=== PATIENT | male | born 1945 | race Caucasian/White ===

== ENCOUNTER → 2017-12-09 | Outpatient (CLI) | payer MEDICARE ==
[2017-12-09 14:58] LABS: Appearance,Urine Clear (Clear); Bilirubin,Urine Negative (Negative); Blood,Urine Negative (Negative); Color,Urine Yellow; Glucose,Urine (UA) Negative (Negative); Ketones,Urine Negative (Negative); Leukocyte Esterase,Urine Negative (Negative); Mucus,Urine Rare /hpf; Nitrite,Urine Negative (Negative); PH, Urine 5.5 (5.0-8.0); Protein,Urine 2+ (Negative); RBC,Urine <1 /hpf (0-5); Specific Gravity,Urine 1.014 (1.001-1.035); Squamous Epithelial Cell,Urine <1 /hpf (0-4); Urobilinogen,Urine <2.0 mg/dL (<2.0); WBC,Urine 1 /hpf (0-5)
[2017-12-09 15:00] LABS: Albumin 4.2 g/dL (3.5-5.0); Anion Gap 13 mmol/L; Blood Urea Nitrogen 25 mg/dL (9-20); Calcium 9.5 mg/dL (8.4-10.2); Carbon Dioxide 25 mmol/L (22-30); Chloride 106 mmol/L (98-107); Glucose 103 mg/dL (74-99); Potassium 4.2 mmol/L (3.5-5.1); Sodium 144 mmol/L (137-145); Uric Acid 8.6 mg/dL (3.5-8.5)
[2017-12-09 15:26] LABS: HCT 35.8 % (39.0-53.0); HGB 12.3 gm/dL (13.0-17.5); MCH 29.9 pg (25.0-35.0); MCHC 34.3 g/dL (31.0-37.0); MCV 87.2 fL (80.0-100.0); Mean Platelet Volume 9.4; Platelet Count 276 k/uL (150-450); RDW 15.1 % (11.5-15.5); WBC 10.1 k/uL (3.8-10.6)
[2017-12-09 16:17] LABS: Eosinophils # (M) 0.61 k/uL (0-0.7); Lymphocytes # (M) 0.91 k/uL (1.0-4.8); Neutrophils # (M) 8.18 k/uL (1.3-7.7); Neutrophils % (M) 81 %; Nucleated Red Blood Cells 0 /100 WBC (0-0); Total Cells Counted 100
[2017-12-09 16:18] LABS: Large Platelets Present
[2017-12-09 19:06] LABS: Iron Saturation 30.03 (15.00-50.00); Protein, Total 6.5 g/dL (6.2-8.2)
[2017-12-09 19:14] LABS: Vitamin D 25 Hydroxy 20.1 ng/mL (30.0-100.0)
[2017-12-09 19:23] LABS: Parathyroid Hormone Intact 38.1 pg/mL (14.0-72.0)
[2017-12-10 00:37] LABS: Anti-DNA, DS unit <1.0 IU/mL; DNA Double-Stranded NEGATIVE (NEGATIVE)
[2017-12-10 14:07] LABS: C-ANCA <1:20 Titer (<1:20); P-ANCA <1:20 Titer (<1:20)
== END | disposition home or self-care (01) ==
LOC: LABWHC1 13:44
PROVIDERS: ATTEND Internal Medicine Nephrology
DX: R80.9 Proteinuria, unspecified (principal); E55.9 Vitamin D deficiency, unspecified; D64.9 Anemia, unspecified; E21.3 Hyperparathyroidism, unspecified; M10.9 Gout, unspecified
CPT/HCPCS: 36415; 80048; 81001; 82040; 82306; 82728; 83516; 83540; 83550; 83735; 83970; 84100; 84165; 84550; 85025; 86038; 86160; 86162; 86225; 86255; 86335

== ENCOUNTER → 2017-12-16 | Outpatient (CLI) | payer MEDICARE ==
--- NOTE | 2017-12-17 06:52 | US ---
EXAMINATION TYPE: US kidneys/renal and bladder DATE OF EXAM: 12/16/2017 COMPARISON: NONE CLINICAL HISTORY: R80.9 Proteinuria. EXAM MEASUREMENTS: Right Kidney: 12.2 x 7.0 x 5.9 cm Left Kidney: 11.9 x 6.5 x 6.5 cm Post Void Residual Volume: 15.8 mL Right Kidney: No hydronephrosis or masses seen Left Kidney: complex hypoechoic lesion mid lower pole with inner calcification: = 1.9 x 1.7 x 1.6cm and inner calcification with shadowing = 0.3 x 0.7 x 0.4cm. Bladder: wnl Bilateral Jets seen: Yes, right jet mor prominent than left. Normal Post Void Residual: No IMPRESSION: 1. There is a complex hypoechoic lesion within the left kidney contains internal calcification. This was not clearly seen on the previous CT scan of 2012. Recommend follow-up CT scan.
== END ==
LOC: RADUSWWP 14:45
PROVIDERS: ATTEND Internal Medicine Nephrology
DX: N28.89 Other specified disorders of kidney and ureter (principal)
CPT/HCPCS: 76770

== ENCOUNTER 2019-06-01 15:12 | Observation (INO) | payer MEDICARE ==
--- NOTE | 2019-06-01 15:56 | XR ---
EXAMINATION TYPE: XR chest 2V DATE OF EXAM: 06/01/2019 COMPARISON: Prior chest x-ray 05/13/2013 HISTORY: Mental status TECHNIQUE: Frontal and lateral views of the chest are obtained. FINDINGS: There is no focal air space opacity, pleural effusion, or pneumothorax seen. The cardiac silhouette size is within normal limits, stable. The osseous structures are intact. Surgical clips present in the upper abdomen. There are overlying cardiac leads. The aorta is dense. IMPRESSION: No acute cardiopulmonary process.
--- NOTE | 2019-06-01 16:02 | ED ---
General Adult HPI - General Chief complaint: Neuro Symptoms/Deficit Stated complaint: Pain over left eye Time Seen by Provider: 06/01/19 15:15 Source: patient, RN notes reviewed, old records reviewed Mode of arrival: wheelchair Limitations: no limitations - History of Present Illness Initial comments: This is a 73-year-old male who presents emergency Department with a past history significant for seizures. Patient states he may have had a mini stroke in the past per patient states today he started having pain over his left I and he then had slurred speech for about 30 seconds and felt confused for that same 30 second period of time and then the symptoms resolved. At this point time the headache over the left I continued and he decided to come to the emergency department to be evaluated. Patient states he has had no visual disturbance and it's not his eye that hurts it's superior to the eye where he is having a headache. Patient denies any numbness or weakness at this time. Patient states his speech does not appear slurred over this time and he does not feel confused like he did earlier today. Patient denies any chest pain palpitations difficulty breathing. Patient denies any abdominal pain patient denies any nausea vomiting diarrhea. Patient denies any lightheadedness or dizziness. - Related Data Home Medications Medication Instructions Recorded Confirmed Allopurinol [Zyloprim] 100 mg PO BID 06/01/19 06/01/19 Anagrelide [Agrylin] 1.5 mg PO BID 06/01/19 06/01/19 Simvastatin [Zocor] 20 mg PO DAILY 06/01/19 06/01/19 Previous Rx's Medication Instructions Recorded Lisinopril [Zestril] 10 mg PO DAILY #0 06/02/19 levETIRAcetam [Keppra] 500 mg PO Q12HR #60 tab 06/02/19 Allergies Allergy/AdvReac Type Severity Reaction Status Date / Time No Known Allergies Allergy Verified 06/01/19 16:31 Review of Systems ROS Statement: Those systems with pertinent positive or pertinent negative responses have been documented in the HPI. ROS Other: All systems not noted in ROS Statement are negative. Past Medical History Past Medical History: CVA/TIA, Hyperlipidemia, Hypertension, Seizure Disorder History of Any Multi-Drug Resistant Organisms: None Reported Past Surgical History: No Surgical Hx Reported Past Psychological History: No Psychological Hx Reported Smoking Status: Never smoker Past Alcohol Use History: None Reported Past Drug Use History: None Reported General Exam - General Exam Comments Initial Comments: GENERAL: Patient is well-developed and well-nourished. Patient is nontoxic and well- hydrated and is in no acute distress. ENT: Neck is soft and supple. No significant lymphadenopathy is noted. Oropharynx is clear. Moist mucous membranes. Neck has full range of motion without eliciting any pain. EYES: The sclera were anicteric and conjunctiva were pink and moist. Extraocular movements were intact and pupils were equal round and reactive to light. Eyelids were unremarkable. PULMONARY: Unlabored respirations. Good breath sounds bilaterally. No audible rales rhonchi or wheezing was noted. CARDIOVASCULAR: There is a regular rate and rhythm without any murmurs gallops or rubs. ABDOMEN: Soft and nontender with normal bowel sounds. No palpable organomegaly was noted. There is no palpable pulsatile mass. SKIN: Skin is clear with no lesions or rashes and otherwise unremarkable. NEUROLOGIC: Patient is alert and oriented x3. Cranial nerves II through XII are grossly intact. Motor and sensory are also intact. Normal speech, volume and content. Symmetrical smile. NIH is 0. MUSCULOSKELETAL: Normal extremities with adequate strength and full range of motion. No lower extremity swelling or edema. No calf tenderness. LYMPHATICS: No significant lymphadenopathy is noted PSYCHIATRIC: Normal psychiatric evaluation. Limitations: no limitations Course Vital Signs 06/01/19 06/01/19 06/01/19 15:15 16:53 17:28 Temperature 97.7 F Pulse Rate 81 80 85 Respiratory 20 16 18 Rate Blood Pressure 168/85 161/83 170/79 O2 Sat by Pulse 98 97 98 Oximetry 06/01/19 18:48 Temperature Pulse Rate 67 Respiratory 16 Rate Blood Pressure 170/86 O2 Sat by Pulse 97 Oximetry Medical Decision Making - Medical Decision Making EKG shows normal sinus rhythm at 84 bpm DC interval 170 QRS is 74 QT interval 360 QTC is 425 per patient's EKG shows no ST segment elevation or depression or T wave abnormalities are noted. I spoke with [facility] hospilists and they accepted the patient - Lab Data Result diagrams: 06/01/19 14:27 06/01/19 14:27 Lab Results 06/01/19 06/01/19 06/01/19 Range/Units 14:27 14:27 14:27 WBC 9.4 (3.8-10.6) k/uL RBC 3.94 L (4.30-5.90) m/uL Hgb 11.8 L (13.0-17.5) gm/dL Hct 35.8 L (39.0-53.0) % MCV 90.9 (80.0-100.0) fL MCH 29.9 (25.0-35.0) pg MCHC 32.9 (31.0-37.0) g/dL RDW 14.8 (11.5-15.5) % Plt Count 204 (150-450) k/uL Neutrophils % 71 % Lymphocytes % 18 % Monocytes % 5 % Eosinophils % 3 % Basophils % 1 % Neutrophils # 6.7 (1.3-7.7) k/uL Lymphocytes # 1.7 (1.0-4.8) k/uL Monocytes # 0.5 (0-1.0) k/uL Eosinophils # 0.3 (0-0.7) k/uL Basophils # 0.1 (0-0.2) k/uL Manual Slide Review Performed Hypochromasia (manual) Present Poikilocytosis (manual Present Anisocytosis (manual) Present PT 10.6 (9.0-12.0) sec INR 1.0 (<1.2) APTT 25.4 (22.0-30.0) sec Sodium 144 (137-145) mmol/L Potassium 4.4 (3.5-5.1) mmol/L Chloride 109 H (98-107) mmol/L Carbon Dioxide 27 (22-30) mmol/L Anion Gap 8 mmol/L BUN 38 H (9-20) mg/dL Creatinine 1.52 H (0.66-1.25) mg/dL Est GFR (CKD-EPI)AfAm 52 (>60 ml/min/1.73 sqM) Est GFR (CKD-EPI)NonAf 45 (>60 ml/min/1.73 sqM) Glucose 104 H (74-99) mg/dL Calcium 9.4 (8.4-10.2) mg/dL Total Bilirubin 0.8 (0.2-1.3) mg/dL AST 24 (17-59) U/L ALT 26 (21-72) U/L Alkaline Phosphatase 90 (38-126) U/L Troponin I (0.000-0.034) ng/mL Total Protein 7.1 (6.3-8.2) g/dL Albumin 4.2 (3.5-5.0) g/dL 06/01/19 Range/Units 14:27 WBC (3.8-10.6) k/uL RBC (4.30-5.90) m/uL Hgb (13.0-17.5) gm/dL Hct (39.0-53.0) % MCV (80.0-100.0) fL MCH (25.0-35.0) pg MCHC (31.0-37.0) g/dL RDW (11.5-15.5) % Plt Count (150-450) k/uL Neutrophils % % Lymphocytes % % Monocytes % % Eosinophils % % Basophils % % Neutrophils # (1.3-7.7) k/uL Lymphocytes # (1.0-4.8) k/uL Monocytes # (0-1.0) k/uL Eosinophils # (0-0.7) k/uL Basophils # (0-0.2) k/uL Manual Slide Review Hypochromasia (manual) Poikilocytosis (manual Anisocytosis (manual) PT (9.0-12.0) sec INR (<1.2) APTT (22.0-30.0) sec Sodium (137-145) mmol/L Potassium (3.5-5.1) mmol/L Chloride (98-107) mmol/L Carbon Dioxide (22-30) mmol/L Anion Gap mmol/L BUN (9-20) mg/dL Creatinine (0.66-1.25) mg/dL Est GFR (CKD-EPI)AfAm (>60 ml/min/1.73 sqM) Est GFR (CKD-EPI)NonAf (>60 ml/min/1.73 sqM) Glucose (74-99) mg/dL Calcium (8.4-10.2) mg/dL Total Bilirubin (0.2-1.3) mg/dL AST (17-59) U/L ALT (21-72) U/L Alkaline Phosphatase (38-126) U/L Troponin I <0.012 (0.000-0.034) ng/mL Total Protein (6.3-8.2) g/dL Albumin (3.5-5.0) g/dL Disposition Clinical Impression: Transient cerebral ischemia Disposition: ADMITTED IP TO THIS HOSP Condition: Stable
[2019-06-01 16:42] LABS: Albumin 4.2 g/dL (3.5-5.0); Calcium 9.4 mg/dL (8.4-10.2); Potassium 4.4 mmol/L (3.5-5.1); Total Bilirubin 0.8 mg/dL (0.2-1.3); Total Protein 7.1 g/dL (6.3-8.2)
[2019-06-01 16:43] LABS: Partial Thromboplastin Time 25.4 sec (22.0-30.0); Prothrombin Time 10.6 sec (9.0-12.0)
[2019-06-01 16:54] LABS: Basophils # (A) 0.1 k/uL (0-0.2); Basophils % (A) 1 %; Eosinophils # (A) 0.3 k/uL (0-0.7); Eosinophils % (A) 3 %; HCT 35.8 % (39.0-53.0); HGB 11.8 gm/dL (13.0-17.5); Lymphocytes # (A) 1.7 k/uL (1.0-4.8); Lymphocytes % (A) 18 %; MCH 29.9 pg (25.0-35.0); MCHC 32.9 g/dL (31.0-37.0); MCV 90.9 fL (80.0-100.0); Mean Platelet Volume 10.2; Monocytes # (A) 0.5 k/uL (0-1.0); Monocytes % (A) 5 %; Neutrophils # (A) 6.7 k/uL (1.3-7.7); Neutrophils % (A) 71 %; Platelet Count 204 k/uL (150-450); RBC 3.94 m/uL (4.30-5.90); RDW 14.8 % (11.5-15.5); WBC 9.4 k/uL (3.8-10.6)
--- NOTE | 2019-06-01 17:04 | CT ---
EXAMINATION TYPE: CT brain wo con DATE OF EXAM: 06/01/2019 COMPARISON: 03/11/2009 HISTORY: pain over left eye/slurred speeech CT DLP: 1084.4 mGycm Automated exposure control for dose reduction was used. FINDINGS: There is 1.5 cm mucous retention cyst right side of the sphenoid sinus. There is mild diffuse cerebra l atrophy. There is no mass effect nor midline shift. There is no sign of intracranial hemorrhage. Ca lvarium is intact. IMPRESSION: MILD CEREBRAL ATROPHY. NO ACUTE INTRACRANIAL ABNORMALITY. THERE IS PROGRESSION OF ATROPHY COMPARED TO OLD EXAM.
[2019-06-01] MEDS ORDERED: ASPIRIN 325 MG TAB PO STA (17:10)
[2019-06-01 17:33] LABS: Anisocytosis (M) Present; Hypochromasia (M) Present; Poikilocytosis (M) Present
[2019-06-01] MEDS: levETIRAcetam 500 MG TAB PO SCH (21:05)
[2019-06-01] MEDS: ALLOPURINOL 100 MG TAB PO SCH (21:05)
[2019-06-01] MEDS: ANAGRELIDE 0.5 MG CAP PO SCH (21:06)
[2019-06-02 06:28] LABS: Cholesterol 99 mg/dL (<200); HDL Cholesterol 27 mg/dL (40-60); LDL Cholesterol,Calculated 54 mg/dL (0-99); Triglycerides 92 mg/dL (<150)
[2019-06-02] MEDS: levETIRAcetam 500 MG TAB PO SCH (08:07)
[2019-06-02] MEDS: ALLOPURINOL 100 MG TAB PO SCH (08:07)
[2019-06-02 08:17] VITALS: RESP 20; TEMP 97.6
[2019-06-02] MEDS: ANAGRELIDE 0.5 MG CAP PO SCH (08:31)
[2019-06-02] MEDS ORDERED: ATORVASTATIN 10 MG TAB PO SCH (09:00)
[2019-06-02] MEDS ORDERED: LISINOPRIL 5 MG TAB PO SCH (09:00)
[2019-06-02] MEDS ORDERED: HYDROCHLOROTHIAZIDE 25 MG TAB PO SCH (09:00)
[2019-06-02] MEDS ORDERED: SODIUM CHLORIDE 0.9% 1,000 ML IV ONE (11:45)
[2019-06-02] MEDS ORDERED: SODIUM CHLORIDE 0.9% 1,000 ML IV SCH (11:45)
[2019-06-02] MEDS ORDERED: ASPIRIN 325 MG TAB PO SCH (12:00)
[2019-06-02 12:56] VITALS: BP 165/77; PULSE 82
--- NOTE | 2019-06-02 13:46 | P.HPIM ---
History of Present Illness Patient is a 73-year-old male came in the emergency department with the complaints of headache followed by slurred speech which lasted for 30 seconds was bit confused. 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 Patient any fever chills patient had nausea vomiting. Denied any visual disturbance. CAT scan of the head showed mild cerebral atrophy. Patient's LDL is below 70. Patient doesn't take aspirin or Plavix at home but does take medication called Agrylin which is an antiplatelet medication because of his side effects to the other antiplatelets. 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 Follows with dermatology for this. I'll obtain a carotid Doppler. Patient baseline creatinine around 0.6 and then it went up to 1.5 patient's on MOON inhibitor and hydrochlorothiazide. Both of these can cause renal dysfunction. Although patient is not willing to stay in the hospital metabolic patient wanted to go home because of that reason I'll give him a bolus of fluid repeat basic metabolic profile in couple days discontinue hydrochlorothiazide since her blood pressure is still high we will increase MOON inhibitor. I'll not start any additional antiplatelet therapy because of his side effects and patient just wanted to follow up with his neurologist will set up an appointment in next 2-3 days patient is not willing to stay for any further workup any further neurological evaluation here in the hospital. Patient did receive his Keppra here. Patient will be discharged with [facility]. Review of Systems REVIEW OF SYSTEMS: CONSTITUTIONAL: No fever, no malaise, no fatigue. HEENT: No recent visual problems or hearing problems. Denied any sore throat. CARDIOVASCULAR: No chest pain, orthopnea, PND, no palpitations, no syncope. PULMONARY: No shortness of breath, no cough, no hemoptysis. GASTROINTESTINAL: No diarrhea, no nausea, no vomiting, no abdominal pain. NEUROLOGICAL: As mentioned in HPI HEMATOLOGICAL: Denies any bleeding or petechiae. GENITOURINARY: Denies any burning micturition, frequency, or urgency. MUSCULOSKELETAL/RHEUMATOLOGICAL: Denies any joint pain, swelling, or any muscle pain. ENDOCRINE: Denies any polyuria or polydipsia. The rest of the 14-point review of systems is negative. Past Medical History Past Medical History: CVA/TIA, Hyperlipidemia, Hypertension, Seizure Disorder History of Any Multi-Drug Resistant Organisms: None Reported Past Surgical History: Prostate Surgery Past Anesthesia/Blood Transfusion Reactions: No Reported Reaction Past Psychological History: No Psychological Hx Reported Smoking Status: Never smoker Past Alcohol Use History: None Reported Past Drug Use History: None Reported Medications and Allergies Home Medications Medication Instructions Recorded Confirmed Type Allopurinol [Zyloprim] 100 mg PO BID 06/01/19 06/01/19 History Anagrelide [Agrylin] 1.5 mg PO BID 06/01/19 06/01/19 History Simvastatin [Zocor] 20 mg PO DAILY 06/01/19 06/01/19 History Lisinopril [Zestril] 10 mg PO DAILY #0 06/02/19 06/01/19 Rx levETIRAcetam [Keppra] 500 mg PO BID #60 tab 06/02/19 Rx Allergies Allergy/AdvReac Type Severity Reaction Status Date / Time No Known Allergies Allergy Verified 06/01/19 16:31 Physical Exam Vitals: Vital Signs Temp Pulse Pulse Resp BP BP Pulse Ox 06/02/19 12:00 82 20 165/77 96 06/02/19 08:00 97.6 F 72 20 153/76 98 06/01/19 22:51 72 18 151/73 98 06/01/19 19:30 98.1 F 76 18 155/71 98 06/01/19 18:48 67 16 170/86 97 06/01/19 17:28 85 18 170/79 98 06/01/19 16:53 80 16 161/83 97 06/01/19 15:15 97.7 F 81 20 168/85 98 Intake and Output 06/01/19 06/02/19 06/02/19 22:59 06:59 14:59 Intake Total 480 Balance 480 Intake: Oral 480 Other: # Voids 1 Weight 77.111 kg 73.9 kg PHYSICAL EXAMINATION: GENERAL: The patient is alert and oriented x3, not in any acute distress. Well developed, well nourished. HEENT: Pupils are round and equally reacting to light. EOMI. No scleral icterus. No conjunctival pallor. Normocephalic, atraumatic. No pharyngeal erythema. No thyromegaly. CARDIOVASCULAR: S1 and S2 present. No murmurs, rubs, or gallops. PULMONARY: Chest is clear to auscultation, no wheezing or crackles. ABDOMEN: Soft, nontender, nondistended, normoactive bowel sounds. No palpable organomegaly. MUSCULOSKELETAL: No joint swelling or deformity. EXTREMITIES: No cyanosis, clubbing, or pedal edema. NEUROLOGICAL: Gross neurological examination did not reveal any focal deficits. SKIN: No rashes. Results CBC & Chem 7: 06/01/19 14:27 06/01/19 14:27 Labs: Abnormal Lab Results - Last 24 Hours (Table) 06/01/19 06/01/19 06/02/19 Range/Units 14:27 14: 06:00 RBC 3.94 L (4.30-5.90) m/uL Hgb 11.8 L (13.0-17.5) gm/dL Hct 35.8 L (39.0-53.0) % Chloride 109 H (98-107) mmol/L BUN 38 H (9-20) mg/dL Creatinine 1.52 H (0.66-1.25) mg/dL Glucose 104 H (74-99) mg/dL HDL Cholesterol 27 L (40-60) mg/dL Thrombosis Risk Factor Assmnt - Choose All That Apply Each Risk Factor Represents 2 Points: Age 61-74 years Thrombosis Risk Factor Assessment Total Risk Factor Score: 2 Thrombosis Risk Factor Assessment Level: Low Risk Assessment and Plan Plan: -Possible transient ischemic attack with symptoms resolved plan as mentioned was patient is not willing to stay Will opt and carotid Doppler and will discharge to follow up with the his neurologist as an outpatient. -Acute and failure probably secondary to MOON inhibitor and hydrochlorothiazide give him IV fluids" is a will be discontinued as his blood pressure still high , a dose of MOON inhibitor and repeat basic metabolic profile in couple days. -Hyperlipidemia -Seizure disorder: Plan as mentioned above
--- NOTE | 2019-06-02 13:46 | P.DS ---
Providers Date of admission: 06/01/19 17:12 Attending physician: Pema Loomis Primary care physician: Xenia Charles [facility] Course: Please refer to my H&P for further details Plan - Discharge Summary Discharge Rx Participant: No New Discharge Prescriptions: Continue Simvastatin [Zocor] 20 mg PO DAILY Anagrelide [Agrylin] 1.5 mg PO BID Allopurinol [Zyloprim] 100 mg PO BID levETIRAcetam [Keppra] 500 mg PO BID #60 tab Changed Lisinopril [Zestril] 10 mg PO DAILY #0 Discontinued Hydrochlorothiazide 25 mg PO DAILY Discharge Medication List Allopurinol [Zyloprim] 100 mg PO BID 06/01/19 [History] Anagrelide [Agrylin] 1.5 mg PO BID 06/01/19 [History] Simvastatin [Zocor] 20 mg PO DAILY 06/01/19 [History] Lisinopril [Zestril] 10 mg PO DAILY #0 06/02/19 [Rx] levETIRAcetam [Keppra] 500 mg PO BID #60 tab 06/02/19 [Rx] Follow up Appointment(s)/Referral(s): Vazquez Ramirez DO [STAFF PHYSICIAN] - 06/29/19 (Saturday message left on your voicemail with time (computers are currently down so they can't look it up)) Xenia Charles MD [Primary Care Provider] - 06/09/19 11:15 am (Saturday) Ambulatory/Diagnostic Orders: Basic Metabolic Panel [LAB.AMB] Time Frame: 3 Days, Location: None Selected Patient Instructions/Handouts: Transient Ischemic Attack (DC) Discharge Disposition: HOME SELF-CARE
--- NOTE | 2019-06-02 15:22 | US ---
EXAMINATION TYPE: US carotid duplex BILAT DATE OF EXAM: 06/02/2019 COMPARISON: NONE CLINICAL HISTORY: TIA. TIA EXAM MEASUREMENTS: RIGHT: Peak Systolic Velocity (PSV) cm/sec ----- Right CCA: 59.5 ----- Right ICA: 131.8 ----- Right ECA: 104.8 ICA/CCA ratio: 2.2 RIGHT: End Diastole cm/sec ----- Right CCA: 11.5 ----- Right ICA: 17.5 ----- Right ECA: 0 LEFT: Peak Systolic Velocity (PSV) cm/sec ----- Left CCA: 76.2 ----- Left ICA: 56.8 ----- Left ECA: 59.4 ICA/CCA ratio: 0.7 LEFT: End Diastole cm/sec ----- Left CCA: 12.8 ----- Left ICA: 16.7 ----- Left ECA: 0 VERTEBRALS (direction of flow): Right Vertebral: Antegrade Left Vertebral: Antegrade Rhythm: Normal Grayscale, color Doppler, spectral Doppler imaging performed. No significant stenosis seen Waveform analysis shows mild elevation of the ICA to CCA ratio, peak systolic velocity in the interna l carotid artery on the right. IMPRESSION: No hemodynamic significant stenosis of the proximal internal carotid artery on the left by Doppler criteria, an indirect measurement of carotid stenosis. There are atheromatous changes invo lving the proximal internal carotid artery on the right at the level of the carotid bulb only mild ve locity increase, no elevation of the end-diastolic velocity. ICA to CCA ratio is mildly increased. Fo llow-up is recommended. Carotid CTA could be performed for increased sensitivity and specificity.
== END 2019-06-02 17:07 | disposition home or self-care (01) ==
LOC: EC 15:12 → 3SCARD 17:12
PROVIDERS: ADMIT Hospitalist; ATTEND Hospitalist
DX: R51 Headache (principal); R47.81 Slurred speech; R41.0 Disorientation, unspecified; E78.5 Hyperlipidemia, unspecified; G40.909 Epilepsy, unspecified, not intractable, without status epilepticus; I10 Essential (primary) hypertension; Z86.73 Personal history of transient ischemic attack (TIA), and cerebral infarction without residual deficits; Z79.02 Long term (current) use of antithrombotics/antiplatelets; Z79.899 Other long term (current) drug therapy; Z98.890 Other specified postprocedural states
CPT/HCPCS: 99285; 36415; 93005; 97161; 80061; 80053; 84484; 85025; 85610; 85730; 71046; 93880; 70450; G0378 ×2

== ENCOUNTER 2019-06-17 06:18 | Emergency (ER) | payer MEDICARE ==
[2019-06-17] MEDS ORDERED: OXYMETAZOLINE 0.05% NASL SPRAY 1 SPRAY BOTTLE NASAL STA (06:21)
[2019-06-17 06:34] VITALS: TEMP 97.9
--- NOTE | 2019-06-17 06:51 | ED ---
ENT HPI - General Stated complaint: Nose Bleed Time Seen by Provider: 06/17/19 06:20 Source: patient, EMS, RN notes reviewed Mode of arrival: EMS Limitations: no limitations - History of Present Illness Initial comments: 73-year-old male presents emergency Department chief complaint of nosebleed. Patient states this started a few hours ago. Bleeding has subsided at this time. He does admit that he has a history of hypertension has not taken his blood pressure medications morning. He states he took an aspirin 2 days ago but denies taking any blood thinners. Patient states she's had this happen in the past in which he had his nose packed and it really is old. Patient denies any headache, dizziness, chest pain or shortness of breath. - Related Data Home Medications Medication Instructions Recorded Confirmed Allopurinol [Zyloprim] 100 mg PO BID 06/01/19 06/01/19 Anagrelide [Agrylin] 1.5 mg PO BID 06/01/19 06/01/19 Simvastatin [Zocor] 20 mg PO DAILY 06/01/19 06/01/19 Previous Rx's Medication Instructions Recorded Lisinopril [Zestril] 10 mg PO DAILY #0 06/02/19 levETIRAcetam [Keppra] 500 mg PO Q12HR #60 tab 06/02/19 Allergies Allergy/AdvReac Type Severity Reaction Status Date / Time No Known Allergies Allergy Verified 06/01/19 16:31 Review of Systems ROS Statement: Those systems with pertinent positive or pertinent negative responses have been documented in the HPI. ROS Other: All systems not noted in ROS Statement are negative. Past Medical History Past Medical History: CVA/TIA, Hyperlipidemia, Hypertension, Seizure Disorder History of Any Multi-Drug Resistant Organisms: None Reported Past Surgical History: No Surgical Hx Reported Past Anesthesia/Blood Transfusion Reactions: No Reported Reaction Past Psychological History: No Psychological Hx Reported Smoking Status: Never smoker Past Alcohol Use History: None Reported Past Drug Use History: None Reported General Exam Limitations: no limitations General appearance: alert, in no apparent distress Head exam: Present: atraumatic, normocephalic, normal inspection Eye exam: Present: normal appearance, PERRL, EOMI. Absent: scleral icterus, conjunctival injection, periorbital swelling ENT exam: Present: mucous membranes moist, TM's normal bilaterally, other (Large blood clot noted in the left nostril no active bleeding.). Absent: normal exam, normal oropharynx (Old blood noted in the oropharynx) Neck exam: Present: normal inspection, full ROM. Absent: tenderness, meningismus, lymphadenopathy Respiratory exam: Present: normal lung sounds bilaterally. Absent: respiratory distress, wheezes, rales, rhonchi, stridor Cardiovascular Exam: Present: regular rate, normal rhythm, normal heart sounds. Absent: systolic murmur, diastolic murmur, rubs, gallop, clicks Course Vital Signs 06/17/19 06:21 Temperature 97.9 F Pulse Rate 85 Respiratory 18 Rate Blood Pressure 161/93 O2 Sat by Pulse 100 Oximetry Medical Decision Making - Medical Decision Making Patient presented with epistaxis. Patient clot in his left nostril was removed by me, after nasal spray was sprayed, clamp was reapplied. Clamp was removed and bleeding has subsided for greater than 30 minutes. Patient will be discharged in stable condition return parameters discussed. Disposition Clinical Impression: Epistaxis Disposition: HOME SELF-CARE Condition: Stable Instructions (If sedation given, give patient instructions): Nosebleed (ED) Additional Instructions: Please return to the Emergency Department if symptoms worsen or any other concerns. Is patient prescribed a controlled substance at d/c from ED?: No Referrals: Xenia Charles MD [Primary Care Provider] - 1-2 days Time of Disposition: 07:50
[2019-06-17 08:16] VITALS: BP 161/85; PULSE 67; RESP 16
== END 2019-06-17 08:30 | disposition home or self-care (01) ==
LOC: EC 06:18
DX: R04.0 Epistaxis (principal); I10 Essential (primary) hypertension; E78.5 Hyperlipidemia, unspecified; Z79.899 Other long term (current) drug therapy; Z86.73 Personal history of transient ischemic attack (TIA), and cerebral infarction without residual deficits
CPT/HCPCS: 99283

== ENCOUNTER → 2019-06-29 | Outpatient (CLI) | payer MEDICARE ==
[2019-06-29 13:22] LABS: Partial Thromboplastin Time 26.7 sec (22.0-30.0); Prothrombin Time 11.1 sec (9.0-12.0)
[2019-06-29 13:25] LABS: Basophils # (A) 0.1 k/uL (0-0.2); Basophils % (A) 1 %; Eosinophils # (A) 0.3 k/uL (0-0.7); Eosinophils % (A) 3 %; HCT 32.4 % (39.0-53.0); HGB 10.5 gm/dL (13.0-17.5); Hypochromasia Slight; Lymphocytes # (A) 1.3 k/uL (1.0-4.8); Lymphocytes % (A) 14 %; MCH 29.2 pg (25.0-35.0); MCHC 32.4 g/dL (31.0-37.0); MCV 90.4 fL (80.0-100.0); Mean Platelet Volume 10.7; Monocytes # (A) 0.4 k/uL (0-1.0); Monocytes % (A) 5 %; Neutrophils # (A) 7.2 k/uL (1.3-7.7); Neutrophils % (A) 77 %; Platelet Count 340 k/uL (150-450); RBC 3.59 m/uL (4.30-5.90); RDW 15.1 % (11.5-15.5); WBC 9.4 k/uL (3.8-10.6)
== END | disposition home or self-care (01) ==
LOC: LABWHC1 12:28
PROVIDERS: ATTEND Psychiatry & Neurology Neurology
DX: D68.9 Coagulation defect, unspecified (principal); G40.909 Epilepsy, unspecified, not intractable, without status epilepticus; Z79.899 Other long term (current) drug therapy
CPT/HCPCS: 36415; 85025; 85610; 85730

== ENCOUNTER 2019-09-02 16:05 | Emergency (ER) | payer MEDICARE ==
[2019-09-02 16:26] LABS: Glucose,Whole Blood 116 mg/dL (75-99)
[2019-09-02] MEDS ORDERED: SODIUM CHLORIDE 0.9% 1,000 ML IV STA ×2 (17:01)
[2019-09-02] MEDS ORDERED: SODIUM CHLORIDE 0.9% 500 ML 500 ML IV STA (17:01)
--- NOTE | 2019-09-02 17:01 | ED ---
Neuro HPI - General Chief Complaint: Neuro Symptoms/Deficit Stated Complaint: Stroke symptoms Time Seen by Provider: 09/02/19 16:29 Source: patient, RN notes reviewed, old records reviewed Mode of arrival: wheelchair Limitations: no limitations - History of Present Illness Is the patient presenting with stroke symptoms?: No Last Known Well Date: 09/02/19 Last Known Well Time: 15:00 -: hour(s) Initial Comments: This is a 73-year-old male who presents today for evaluation of some slurred speech and confusion symptoms about 2-1/2 hours prior to arrival in the ER. Symptoms resolved for about 45 minutes he does have history of TIA. Patient is otherwise no traumas no injuries mild headache earlier but that is resolved. No recent travel history or sick contacts or recent medication changes no recent fevers no nausea vomiting or diarrhea or illness. Patient states symptoms occurred while driving and again resolved before minutes after that began Location: speech History of same: Yes Place: home Severity: mild Quality: weak Improves With: time Worsens With: none On Anticoagulants: No Context: sudden onset, other (Symptoms resolved) Associated Symptoms: confusion Treatments Prior to Arrival: none - Related Data Home Medications: Home Medications Medication Instructions Recorded Confirmed Allopurinol [Zyloprim] 100 mg PO BID 06/01/19 06/01/19 Anagrelide [Agrylin] 1.5 mg PO BID 06/01/19 06/01/19 Simvastatin [Zocor] 20 mg PO DAILY 06/01/19 06/01/19 Previous Rx's Medication Instructions Recorded Lisinopril [Zestril] 10 mg PO DAILY #0 06/02/19 levETIRAcetam [Keppra] 500 mg PO Q12HR #60 tab 06/02/19 Aspirin 325 mg PO DAILY #30 tab 09/02/19 Allergies/Adverse Reactions: Allergies Allergy/AdvReac Type Severity Reaction Status Date / Time No Known Allergies Allergy Verified 09/02/19 18:44 Review of Systems ROS Statement: Those systems with pertinent positive or pertinent negative responses have been documented in the HPI. ROS Other: All systems not noted in ROS Statement are negative. General Exam - General Exam Comments Initial Comments: NIH is 0 Limitations: no limitations General appearance: alert, in no apparent distress Head exam: Present: atraumatic, normocephalic, normal inspection Eye exam: Present: normal appearance, PERRL, EOMI. Absent: scleral icterus, conjunctival injection, periorbital swelling ENT exam: Present: normal exam, mucous membranes moist Neck exam: Present: normal inspection. Absent: tenderness, meningismus, lymphadenopathy Respiratory exam: Present: normal lung sounds bilaterally. Absent: respiratory distress, wheezes, rales, rhonchi, stridor Cardiovascular Exam: Present: regular rate, normal rhythm, normal heart sounds. Absent: systolic murmur, diastolic murmur, rubs, gallop, clicks GI/Abdominal exam: Present: soft, normal bowel sounds. Absent: distended, tenderness, guarding, rebound, rigid Extremities exam: Present: normal inspection, full ROM, normal capillary refill. Absent: tenderness, pedal edema, joint swelling, calf tenderness Back exam: Present: normal inspection Neurological exam: Present: alert, oriented X3, CN II-XII intact Psychiatric exam: Present: normal affect, normal mood Skin exam: Present: warm, dry, intact, normal color. Absent: rash Stroke MDM - Lab Data Result diagrams: 09/02/19 16:21 09/02/19 16:21 Lab Results 09/02/19 09/02/19 09/02/19 Range/Units 16:15 16:21 16:21 WBC 10.1 (3.8-10.6) k/uL RBC 4.54 (4.30-5.90) m/uL Hgb 12.9 L (13.0-17.5) gm/dL Hct 40.0 (39.0-53.0) % MCV 88.2 (80.0-100.0) fL MCH 28.4 (25.0-35.0) pg MCHC 32.1 (31.0-37.0) g/dL RDW 15.3 (11.5-15.5) % Plt Count 273 (150-450) k/uL Neutrophils % (Manual) 79 % Band Neutrophils % 2 % Lymphocytes % (Manual) 11 % Monocytes % (Manual) 6 % Eosinophils % (Manual) 2 % Neutrophils # (Manual) 8.10 H (1.3-7.7) k/uL Lymphocytes # (Manual) 1.11 (1.0-4.8) k/uL Monocytes # (Manual) 0.61 (0-1.0) k/uL Eosinophils # (Manual) 0.20 (0-0.7) k/uL Nucleated RBCs 0 (0-0) /100 WBC Manual Slide Review Performed Large Platelets Present PT (9.0-12.0) sec INR (<1.2) APTT (22.0-30.0) sec Sodium 140 (137-145) mmol/L Potassium 4.7 (3.5-5.1) mmol/L Chloride 107 (98-107) mmol/L Carbon Dioxide 25 (22-30) mmol/L Anion Gap 8 mmol/L BUN 29 H (9-20) mg/dL Creatinine 1.32 H (0.66-1.25) mg/dL Est GFR (CKD-EPI)AfAm 62 (>60 ml/min/1.73 sqM) Est GFR (CKD-EPI)NonAf 53 (>60 ml/min/1.73 sqM) Glucose 111 H (74-99) mg/dL POC Glucose (mg/dL) 116 H (75-99) mg/dL POC Glu Slip Cover Operator ID Salgat, Nica Calcium 9.6 (8.4-10.2) mg/dL Total Bilirubin 0.9 (0.2-1.3) mg/dL AST 27 (17-59) U/L ALT 15 (4-49) U/L Alkaline Phosphatase 86 (38-126) U/L Troponin I (0.000-0.034) ng/mL Total Protein 7.3 (6.3-8.2) g/dL Albumin 4.5 (3.5-5.0) g/dL 09/02/19 09/02/19 Range/Units 16:21 16:21 WBC (3.8-10.6) k/uL RBC (4.30-5.90) m/uL Hgb (13.0-17.5) gm/dL Hct (39.0-53.0) % MCV (80.0-100.0) fL MCH (25.0-35.0) pg MCHC (31.0-37.0) g/dL RDW (11.5-15.5) % Plt Count (150-450) k/uL Neutrophils % (Manual) % Band Neutrophils % % Lymphocytes % (Manual) % Monocytes % (Manual) % Eosinophils % (Manual) % Neutrophils # (Manual) (1.3-7.7) k/uL Lymphocytes # (Manual) (1.0-4.8) k/uL Monocytes # (Manual) (0-1.0) k/uL Eosinophils # (Manual) (0-0.7) k/uL Nucleated RBCs (0-0) /100 WBC Manual Slide Review Large Platelets PT 10.8 (9.0-12.0) sec INR 1.0 (<1.2) APTT 25.6 (22.0-30.0) sec Sodium (137-145) mmol/L Potassium (3.5-5.1) mmol/L Chloride (98-107) mmol/L Carbon Dioxide (22-30) mmol/L Anion Gap mmol/L BUN (9-20) mg/dL Creatinine (0.66-1.25) mg/dL Est GFR (CKD-EPI)AfAm (>60 ml/min/1.73 sqM) Est GFR (CKD-EPI)NonAf (>60 ml/min/1.73 sqM) Glucose (74-99) mg/dL POC Glucose (mg/dL) (75-99) mg/dL POC Glu Slip Cover Operator ID Calcium (8.4-10.2) mg/dL Total Bilirubin (0.2-1.3) mg/dL AST (17-59) U/L ALT (4-49) U/L Alkaline Phosphatase (38-126) U/L Troponin I <0.012 (0.000-0.034) ng/mL Total Protein (6.3-8.2) g/dL Albumin (3.5-5.0) g/dL - NIH Stroke Scale 1a. Level of Consciousness: (0) alert 1b. LOC Questions: (0) answers correctly 1c. LOC Commands: (0) performs tasks correctly 2. Best Gaze: (0) normal 3. Visual: (0) no visual loss 4. Facial Palsy: (0) normal symmetrical movement 5a. Motor Arm Left: (0) no drift 5b. Motor Arm Right: (0) no drift 6a. Motor Leg Left: (0) no drift 6b. Motor Leg Right: (0) no drift 7. Limb Ataxia: (0) absent 8. Sensory: (0) normal 9. Best Language: (0) no aphasia 10. Dysarthria: (0) normal 11. Extinction/Inattention: (0) no abnormality - Thrombolytic Inclusion/Exclusion Thrombolytic Inclusion Criteria: Symptom Onset < 4.5 h Thrombolytic Contraindications: Rapidly Improving s/s - Medical Decision Making 73 male DF for evaluation patient presents for evaluation of neurological symptoms, symptoms resolved upon arrival. He did have some slurred speech confusion again no symptoms really resolved, patient will start taking aspirin daily and follow-up with his neurologist going forward. - Radiology Data Radiology results: report reviewed (CT brain CT had neck negative for acute disease), image reviewed - EKG Data -: EKG Interpreted by Me (EKG shows sinus rhythm of 81, MO 180, QRS 82, QTC 446) Past Medical History Past Medical History: CVA/TIA, Hyperlipidemia, Hypertension, Seizure Disorder History of Any Multi-Drug Resistant Organisms: None Reported Past Surgical History: No Surgical Hx Reported Past Anesthesia/Blood Transfusion Reactions: No Reported Reaction Past Psychological History: No Psychological Hx Reported Smoking Status: Never smoker Past Alcohol Use History: None Reported Past Drug Use History: None Reported Course Vital Signs 09/02/19 09/02/19 16:06 16:15 Temperature 97.5 F L 97.2 F L Pulse Rate 98 86 Respiratory 20 18 Rate Blood Pressure 165/80 149/76 O2 Sat by Pulse 98 100 Oximetry - Reevaluation(s) Reevaluation #1: 09/02/19 18:49 Medical records reviewed Reevaluation #2: 09/02/19 18:49 Patient remains a symptomatic with no neurological complaints Reevaluation #3: 09/02/19 18:49 The patient at length will take daily aspirin and patient will be discharged home patient does not want to stay for further testing he plans on going out of town this weekend Disposition Clinical Impression: Transient cerebral ischemia Disposition: HOME SELF-CARE Condition: Good Instructions (If sedation given, give patient instructions): Transient Ischemic Attack (ED) Prescriptions: Aspirin 325 mg PO DAILY #30 tab Is patient prescribed a controlled substance at d/c from ED?: No Referrals: Xenia Charles MD [Primary Care Provider] - 1-2 days
[2019-09-02 17:22] LABS: Albumin 4.5 g/dL (3.5-5.0); Calcium 9.6 mg/dL (8.4-10.2); Potassium 4.7 mmol/L (3.5-5.1); Total Bilirubin 0.9 mg/dL (0.2-1.3); Total Protein 7.3 g/dL (6.3-8.2)
[2019-09-02 17:29] LABS: HGB 12.9 gm/dL (13.0-17.5); MCH 28.4 pg (25.0-35.0); MCHC 32.1 g/dL (31.0-37.0); MCV 88.2 fL (80.0-100.0); Mean Platelet Volume 11.9; RBC 4.54 m/uL (4.30-5.90); RDW 15.3 % (11.5-15.5); WBC 10.1 k/uL (3.8-10.6)
[2019-09-02 17:35] LABS: Partial Thromboplastin Time 25.6 sec (22.0-30.0); Prothrombin Time 10.8 sec (9.0-12.0)
--- NOTE | 2019-09-02 17:56 | CT ---
EXAMINATION TYPE: CT brain wo con for TPA DATE OF EXAM: 09/02/2019 COMPARISON: 06/01/2019 HISTORY: headache, dysphasia CT DLP: 1073 mGycm Automated exposure control for dose reduction was used. There is cerebral cortical atrophy. There is no mass effect nor midline shift. There is no sign of in tracranial hemorrhage. The calvarium is intact. There is mild hypodensity in the periventricular whit e matter. IMPRESSION: Cerebral atrophy and mild chronic small vessel ischemia. No acute intracranial abnormality. Right lore e sphenoid sinus mucus retention cyst unchanged compared to old exam.
--- NOTE | 2019-09-02 18:19 | CT ---
EXAMINATION TYPE: CT angio head neck DATE OF EXAM: 09/02/2019 COMPARISON: None HISTORY: headache, dysphasia CT DLP: 406.3 mGycm Automated exposure control for dose reduction was used. CONTRAST: Performed with IV Contrast, patient injected with 65 mL of Isovue 370. There are 3-D post processed images. There is normal branching pattern of the great vessels on the aortic arch. There is bilateral arteria l flow in the subclavian arteries. There is arterial flow in the common internal and external carotid arteries bilaterally. There is arterial flow in both vertebral arteries. There is no evidence of car otid or vertebral artery aneurysm or dissection. There is some plaque formation at the carotid artery bifurcations and luminal narrowing of approximately 20%. There is no evidence of hemodynamic stenosi s. There is arterial flow in the vertebrobasilar artery system. There is patent right posterior communic ating artery. Right posterior cerebral artery fills significantly from the right posterior communicat ing artery. There is arterial flow in the anterior middle and posterior cerebral arteries. There is n o mass effect. There is no evidence of intracranial aneurysm or neovascularity. I see no evidence of intracranial hemodynamic stenosis. There is normal contrast opacification of the venous sinuses. There is diminutive distal right verteb ral artery. IMPRESSION: Mild atherosclerotic vascular disease. No evidence of hemodynamic stenosis.
[2019-09-02] MEDS ORDERED: ASPIRIN 81 MG PO STA (18:24)
[2019-09-02 18:34] LABS: Band Neutrophils % 2 %; Large Platelets Present; Lymphocytes # (M) 1.11 k/uL (1.0-4.8); Monocytes # (M) 0.61 k/uL (0-1.0); Neutrophils % (M) 79 %; Nucleated Red Blood Cells 0 /100 WBC (0-0); Total Cells Counted 100
[2019-09-02 18:35] LABS: Platelet Count 273 k/uL (150-450)
[2019-09-02 19:03] VITALS: BP 162/86; PULSE 89; RESP 16; TEMP 98
== END 2019-09-02 19:07 | disposition home or self-care (01) ==
LOC: EC 16:05
DX: G45.9 Transient cerebral ischemic attack, unspecified (principal); E78.5 Hyperlipidemia, unspecified; I10 Essential (primary) hypertension; Z79.899 Other long term (current) drug therapy; Z53.8 Procedure and treatment not carried out for other reasons
CPT/HCPCS: 36415; 93005; 80053; 84484; 85025; 85610; 85730; 70496; 70450; 70498; 99285; 96360; 96361; Q9967

== ENCOUNTER 2021-04-13 11:59 | Inpatient (IN) | payer MEDICARE ==
--- NOTE | 2021-04-13 12:15 | ED ---
Weakness HPI - General Stated complaint: Fall-Leg Injury Time Seen by Provider: 04/13/21 12:00 Source: RN notes reviewed - History of Present Illness Initial comments: This is a 75-year-old male with a prior history of TIA and prostate cancer with prostate resection about 10 years ago who states he has had 4 days of right lower extremity weakness he states he can weight bear but he can't really move his right leg otherwise. He was in taking a shower today when he fell initially could not get up he did crawl across the floor and called 911 he was brought here for further evaluation he denies any overt head neck or back pain is complains some lower right flank pain no pain to his lower extremities but again no movement of the right lower extremity states it feels like a marionette on a strain Complaint: focal weakness - Related Data Home Medications Medication Instructions Recorded Confirmed Allopurinol [Zyloprim] 100 mg PO BID 06/01/19 09/02/19 Anagrelide [Agrylin] 1.5 mg PO BID 06/01/19 09/02/19 Simvastatin [Zocor] 20 mg PO HS 06/01/19 09/02/19 Ergocalciferol [Vitamin D2] See Taper PO DIRECTED 09/02/19 09/02/19 amLODIPine [Norvasc] 5 mg PO DAILY 09/02/19 09/02/19 levETIRAcetam [Keppra] 500 mg PO BID 09/02/19 09/02/19 lisinopriL [Zestril] 5 mg PO DAILY 09/02/19 09/02/19 Previous Rx's Medication Instructions Recorded Aspirin 325 mg PO DAILY #30 tab 09/02/19 Allergies Allergy/AdvReac Type Severity Reaction Status Date / Time No Known Allergies Allergy Verified 04/13/21 12:12 Review of Systems ROS Statement: Those systems with pertinent positive or pertinent negative responses have been documented in the HPI. ROS Other: All systems not noted in ROS Statement are negative. Past Medical History Past Medical History: CVA/TIA, Hyperlipidemia, Hypertension, Seizure Disorder History of Any Multi-Drug Resistant Organisms: None Reported Past Surgical History: No Surgical Hx Reported Past Anesthesia/Blood Transfusion Reactions: No Reported Reaction Past Psychological History: No Psychological Hx Reported Past Alcohol Use History: None Reported Past Drug Use History: None Reported General Exam - General Exam Comments Initial Comments: This is a well-developed well-nourished awake alert oriented times female with a Aubrey Coma Scale of 15 General appearance: alert, in no apparent distress Head exam: Present: atraumatic, normocephalic, normal inspection Eye exam: Present: normal appearance, PERRL, EOMI. Absent: scleral icterus, conjunctival injection, periorbital swelling ENT exam: Present: normal exam, mucous membranes moist Neck exam: Present: normal inspection. Absent: tenderness, meningismus, lymphadenopathy Respiratory exam: Present: normal lung sounds bilaterally. Absent: respiratory distress, wheezes, rales, rhonchi, stridor Cardiovascular Exam: Present: regular rate, normal rhythm, normal heart sounds. Absent: systolic murmur, diastolic murmur, rubs, gallop, clicks GI/Abdominal exam: Present: soft, normal bowel sounds. Absent: distended, tenderness, guarding, rebound, rigid Extremities exam: Present: normal inspection, normal capillary refill. Absent: full ROM, tenderness, pedal edema, joint swelling, calf tenderness Back exam: Present: normal inspection Neurological exam: Present: alert, oriented X3, CN II-XII intact, motor sensory deficit (Patient is unable to move the right lower extremity no overt tenderness palpation no vascular deficits) Psychiatric exam: Present: normal affect, normal mood Skin exam: Present: warm, dry, intact, normal color. Absent: rash Course Vital Signs 04/13/21 04/13/21 12:09 14:34 Temperature 97.9 F Pulse Rate 101 H 89 Respiratory 18 18 Rate Blood Pressure 135/68 151/79 O2 Sat by Pulse 96 96 Oximetry EKG Findings - EKG Results: EKG: interpreted by RASHAAD, sinus rhythm (Sinus rhythm a 99. We'll 170 QRS duration 82 QT since QTC 350/[address]-t wave changes) Medical Decision Making - Medical Decision Making I did discuss findings with the patient as well as with [facility] after [facility] service patient will be admitted with neurological consultation additionally patient does have evidence of dehydration and pneumonitis patient be admitted with antibiotics IV fluids and neurology consultation additionally patient does have demonstration of CVA symptoms he is not a candidate for interventional neurology this time - Lab Data Result diagrams: 04/13/21 12:58 04/13/21 12:58 Lab Results 04/13/21 04/13/21 04/13/21 Range/Units 12:58 12:58 12:58 WBC 25.9 H (3.8-10.6) k/uL RBC 4.65 (4.30-5.90) m/uL Hgb 13.8 (13.0-17.5) gm/dL Hct 41.9 (39.0-53.0) % MCV 90.2 (80.0-100.0) fL MCH 29.6 (25.0-35.0) pg MCHC 32.9 (31.0-37.0) g/dL RDW 14.9 (11.5-15.5) % Plt Count 510 H (150-450) k/uL MPV 10.3 Neutrophils % 91 % Lymphocytes % 6 % Monocytes % 2 % Eosinophils % 0 % Basophils % 0 % Neutrophils # 23.7 H (1.3-7.7) k/uL Lymphocytes # 1.6 (1.0-4.8) k/uL Monocytes # 0.5 (0-1.0) k/uL Eosinophils # 0.1 (0-0.7) k/uL Basophils # 0.1 (0-0.2) k/uL PT 11.1 (9.0-12.0) sec INR 1.0 (<1.2) APTT 24.1 (22.0-30.0) sec Sodium 140 (137-145) mmol/L Potassium 4.6 (3.5-5.1) mmol/L Chloride 112 H (98-107) mmol/L Carbon Dioxide 19 L (22-30) mmol/L Anion Gap 9 mmol/L BUN 34 H (9-20) mg/dL Creatinine 1.57 H (0.66-1.25) mg/dL Est GFR (CKD-EPI)AfAm 49 (>60 ml/min/1.73 sqM) Est GFR (CKD-EPI)NonAf 43 (>60 ml/min/1.73 sqM) Glucose 178 H (74-99) mg/dL Calcium 9.9 (8.4-10.2) mg/dL Total Bilirubin 1.5 H (0.2-1.3) mg/dL AST 25 (17-59) U/L ALT 18 (4-49) U/L Alkaline Phosphatase 86 (38-126) U/L Troponin I (0.000-0.034) ng/mL Total Protein 7.1 (6.3-8.2) g/dL Albumin 4.3 (3.5-5.0) g/dL Urine Color Urine Appearance (Clear) Urine pH (5.0-8.0) Ur Specific [place] (1.001-1.035) Urine Protein (Negative) Urine Glucose (UA) (Negative) Urine Ketones (Negative) Urine Blood (Negative) Urine Nitrite (Negative) Urine Bilirubin (Negative) Urine Urobilinogen (<2.0) mg/dL Ur Leukocyte Esterase (Negative) Urine RBC (0-5) /hpf Urine WBC (0-5) /hpf Urine WBC Clumps (None) /hpf Ur Squamous Epith Cells (0-4) /hpf Urine Bacteria (None) /hpf Hyaline Casts (0-2) /lpf Urine Mucus (None) /hpf 04/13/21 04/13/21 Range/Units 12:58 12:58 WBC (3.8-10.6) k/uL RBC (4.30-5.90) m/uL Hgb (13.0-17.5) gm/dL Hct (39.0-53.0) % MCV (80.0-100.0) fL MCH (25.0-35.0) pg MCHC (31.0-37.0) g/dL RDW (11.5-15.5) % Plt Count (150-450) k/uL MPV Neutrophils % % Lymphocytes % % Monocytes % % Eosinophils % % Basophils % % Neutrophils # (1.3-7.7) k/uL Lymphocytes # (1.0-4.8) k/uL Monocytes # (0-1.0) k/uL Eosinophils # (0-0.7) k/uL Basophils # (0-0.2) k/uL PT (9.0-12.0) sec INR (<1.2) APTT (22.0-30.0) sec Sodium (137-145) mmol/L Potassium (3.5-5.1) mmol/L Chloride (98-107) mmol/L Carbon Dioxide (22-30) mmol/L Anion Gap mmol/L BUN (9-20) mg/dL Creatinine (0.66-1.25) mg/dL Est GFR (CKD-EPI)AfAm (>60 ml/min/1.73 sqM) Est GFR (CKD-EPI)NonAf (>60 ml/min/1.73 sqM) Glucose (74-99) mg/dL Calcium (8.4-10.2) mg/dL Total Bilirubin (0.2-1.3) mg/dL AST (17-59) U/L ALT (4-49) U/L Alkaline Phosphatase (38-126) U/L Troponin I <0.012 (0.000-0.034) ng/mL Total Protein (6.3-8.2) g/dL Albumin (3.5-5.0) g/dL Urine Color Yellow Urine Appearance Cloudy (Clear) Urine pH 5.5 (5.0-8.0) Ur Specific [place] 1.020 (1.001-1.035) Urine Protein 2+ H (Negative) Urine Glucose (UA) Negative (Negative) Urine Ketones Negative (Negative) Urine Blood Negative (Negative) Urine Nitrite Negative (Negative) Urine Bilirubin Negative (Negative) Urine Urobilinogen <2.0 (<2.0) mg/dL Ur Leukocyte Esterase Large H (Negative) Urine RBC 3 (0-5) /hpf Urine WBC 72 H (0-5) /hpf Urine WBC Clumps Few H (None) /hpf Ur Squamous Epith Cells 5 H (0-4) /hpf Urine Bacteria Rare H (None) /hpf Hyaline Casts 3 H (0-2) /lpf Urine Mucus Rare H (None) /hpf - Radiology Data Radiology results: report reviewed (Imaging reviewed no acute findings), image reviewed Disposition Clinical Impression: Fall, CVA (cerebral vascular accident), Pneumonia, Dehydration Disposition: ADMITTED IP TO THIS [facility] Condition: Fair Referrals: Xenia Charles MD [Primary Care Provider] - 1-2 days
[2021-04-13 13:23] LABS: Albumin 4.3 g/dL (3.5-5.0); Calcium 9.9 mg/dL (8.4-10.2); Potassium 4.6 mmol/L (3.5-5.1); Total Bilirubin 1.5 mg/dL (0.2-1.3); Total Protein 7.1 g/dL (6.3-8.2)
[2021-04-13 13:29] LABS: Partial Thromboplastin Time 24.1 sec (22.0-30.0); Prothrombin Time 11.1 sec (9.0-12.0)
[2021-04-13 13:30] LABS: Basophils # (A) 0.1 k/uL (0-0.2); Basophils % (A) 0 %; Eosinophils # (A) 0.1 k/uL (0-0.7); Eosinophils % (A) 0 %; HCT 41.9 % (39.0-53.0); HGB 13.8 gm/dL (13.0-17.5); Lymphocytes # (A) 1.6 k/uL (1.0-4.8); Lymphocytes % (A) 6 %; MCH 29.6 pg (25.0-35.0); MCHC 32.9 g/dL (31.0-37.0); MCV 90.2 fL (80.0-100.0); Mean Platelet Volume 10.3; Monocytes # (A) 0.5 k/uL (0-1.0); Monocytes % (A) 2 %; Neutrophils # (A) 23.7 k/uL (1.3-7.7); Neutrophils % (A) 91 %; Platelet Count 510 k/uL (150-450); RBC 4.65 m/uL (4.30-5.90); RDW 14.9 % (11.5-15.5); WBC 25.9 k/uL (3.8-10.6)
--- NOTE | 2021-04-13 13:46 | CT ---
EXAMINATION TYPE: CT brain wo con DATE OF EXAM: 04/13/2021 HISTORY: Neuro deficit acute onset, fall, history of CVA/TIA. CT DLP: 1141.4 mGycm. Automated Exposure Control for Dose Reduction was Utilized. TECHNIQUE: CT scan of the head is performed without contrast. COMPARISON: CT brain September 02, 2019. FINDINGS: There is no acute intracranial hemorrhage or midline shift identified. There is mild-to-m oderate diffuse ventricular and sulcal prominence consistent with diffuse age-related cerebral atroph y. There is moderate low-attenuation in the periventricular white matter consistent with chronic sma ll vessel ischemic change. A mucous retention cyst or polyp in the right sphenoid sinus is redemonstr ated. Globes are intact bilaterally. IMPRESSION: No acute intracranial hemorrhage or midline shift. There is mild to moderate diffuse ag e-related cerebral atrophy and moderate chronic small vessel ischemic change redemonstrated. No sign ificant change from most recent CT.
--- NOTE | 2021-04-13 13:56 | XR ---
EXAMINATION TYPE: XR tibia fibula RT DATE OF EXAM: 04/13/2021 COMPARISON: NONE HISTORY: Pain TECHNIQUE: Two views are submitted. FINDINGS: The osseous structures are intact. The joint spaces are preserved. Posterior cortical hyperostosis noted. Mid diaphyseal fibular deformity appears chronic suggestive of previous fracture. IMPRESSION: 1. No acute osseous abnormality. Findings suspicious for remote mid fibular fracture.
--- NOTE | 2021-04-13 13:57 | XR ---
EXAMINATION TYPE: XR chest 2V DATE OF EXAM: 04/13/2021 COMPARISON: NONE TECHNIQUE: PA and lateral views submitted. HISTORY: Pain post fall FINDINGS: The lungs are clear and there is no pneumothorax, pleural effusion, or focal pneumonia. Atheroscler otic change aorta. Diffuse osteopenia. Increased interstitial pattern. Degenerative changes of the sp ine. Surgical clips in the abdomen. IMPRESSION: 1. Early for interstitial lung disease. Chronic lung disease coating fibrosis, interstitial pneumonit is or less likely mild or early venous congestion in the differential diagnosis.
--- NOTE | 2021-04-13 13:58 | XR ---
EXAMINATION TYPE: XR femur RT DATE OF EXAM: 04/13/2021 CLINICAL HISTORY: Pain TECHNIQUE: Two views of the right femur are obtained. COMPARISON: None FINDINGS: There is no acute fracture or dislocation seen in the right femur. There is arthropathy of the hip joint with hypertrophic change of the acetabulum correlate for femoral acetabular impingemen t. Narrowing of the medial compartment of the knee joint. Mild diffuse osteopenia. Vascular calcifica tions noted. IMPRESSION: 1. No acute fracture.
--- NOTE | 2021-04-13 14:00 | XR ---
EXAMINATION TYPE: XR Hip RT and AP Pelvis DATE OF EXAM: 04/13/2021 COMPARISON: NONE HISTORY: Pain TECHNIQUE: A single AP view of the pelvis is obtained. Two views of the right hip are obtained. FINDINGS: There is no acute fracture/dislocation evident in the pelvis. Hypertrophic change of the l ower lumbar spine. SI joints symmetric. Bilateral hip arthropathy. IMPRESSION: 1. No acute fracture. 2. Bilateral hip arthropathy. 3. Correlate for femoral acetabular impingement.
[2021-04-13 15:10] LABS: Appearance,Urine Cloudy (Clear); Bacteria,Urine Rare /hpf; Bilirubin,Urine Negative (Negative); Blood,Urine Negative (Negative); Color,Urine Yellow; Glucose,Urine (UA) Negative (Negative); Hyaline Casts,Urine 3 /lpf (0-2); Ketones,Urine Negative (Negative); Leukocyte Esterase,Urine Large (Negative); Mucus,Urine Rare /hpf; Nitrite,Urine Negative (Negative); PH, Urine 5.5 (5.0-8.0); Protein,Urine 2+ (Negative); RBC,Urine 3 /hpf (0-5); Squamous Epithelial Cell,Urine 5 /hpf (0-4); Urobilinogen,Urine <2.0 mg/dL (<2.0); WBC,Urine 72 /hpf (0-5)
[2021-04-13] MEDS ORDERED: cefTRIAXone IN SWFI 1,000 MG/10 ML SYRINGE IVP STA (15:13)
[2021-04-13] MEDS ORDERED: ASPIRIN 325 MG TAB PO STA (15:25)
[2021-04-13] MEDS ORDERED: AZITHROMYCIN 500 MG in SODIUM CHLORIDE 0.9% 250 ML IVPB STA (15:29)
[2021-04-13] MEDS: SODIUM CHLORIDE 0.9% 1,000 ML IV SCH (16:07)
[2021-04-13] MEDS: allopurinoL 100 MG TAB PO SCH (20:15)
[2021-04-13] MEDS: ATORVASTATIN 10 MG TAB PO SCH (20:16)
[2021-04-13] MEDS: levETIRAcetam 500 MG TAB PO SCH (20:16)
[2021-04-13] MEDS ORDERED: FAMOTIDINE 20 MG/2 ML VIAL IV SCH (21:00)
[2021-04-13] MEDS: ANAGRELIDE 0.5 MG CAP PO SCH (21:21)
[2021-04-13] MEDS: DOXYCYCLINE 100 MG CAP PO SCH (21:22)
--- NOTE | 2021-04-13 21:29 | HP ---
HISTORY AND PHYSICAL DATE OF SERVICE: 04/13/2021 CHIEF COMPLAINT: Fall and leg injury. HISTORY OF PRESENT ILLNESS: This 75-year-old gentleman with a past medical history of CVA, TIA, hypertension, hyperlipidemia, seizure disorder, history of prostate disorder, being followed by Dr. Charles in the outpatient setting, apparently had some weakness on the right lower extremity. The patient was unable to bear weight on the leg and the patient apparently also had a fall while taking a shower and EMS was called. The patient came to [facility]. Extensive x-rays did not show any acute abnormality. The patient also had a CT of the brain which I reviewed personally which showed no acute abnormality, mild to moderate diffuse cerebral atrophy. The patient was admitted for further evaluation and treatment. There is no history of any fever, rigors or chills. No history of headache, loss of consciousness, seizures. Patient has mild dysarthria. PAST MEDICAL HISTORY: History of CVA, TIA, hypertension, hyperlipidemia, prostate disorder, seizure disorder. Last seizure was about 4 years ago. MEDICATIONS: Zestril, Norvasc, Zocor, Agrylin, zyloprim, Keppra and Deltasone. ALLERGIES: NONE. FAMILY HISTORY: History of CVA, TIA, OCD. SOCIAL HISTORY: No history of smoking. No history of alcohol. REVIEW OF SYSTEMS: ENT: Diminished hearing. Diminished vision. CARDIOVASCULAR SYSTEM: No angina, palpitations. RESPIRATORY SYSTEM: No cough, hemoptysis. GI: No nausea, vomiting, diarrhea. : No dysuria. NERVOUS SYSTEM: No numbness, weakness. ALLERGY/IMMUNOLOGY: No asthma or hay fever. MUSCULOSKELETAL: As mentioned earlier. HEMATOLOGY/ONCOLOGY: No history of anemia. ENDOCRINE: No history of diabetes or hypothyroidism. CONSTITUTIONAL: As mentioned earlier. DERMATOLOGY: Negative. RHEUMATOLOGY: Negative. PSYCHIATRY: As mentioned earlier. PHYSICAL EXAMINATION: Patient alert and x3. Pulse is 89, blood pressure 146/74, respiration 18, temperature 98.1, pulse ox 97% on room air. HEENT: Conjunctivae normal. NECK: No jugular venous distention. CARDIOVASCULAR: S1, S2 muffled. RESPIRATION: Breath sounds diminished at the bases. A few scattered rhonchi. No crackles. ABDOMEN: Soft, nontender. No mass palpable. LEGS: No edema. No swelling. NERVOUS SYSTEM: Higher functions as mentioned earlier. Otherwise, minimal weakness on the right side, mainly concentrated on the right lower limb, grade zero to 1 power. Minimal sensory abnormalities. Reflexes are diminished. SKIN: No ulcer, rash, bleeding. JOINTS: No active deforming arthropathy. LAB STUDIES: WBC 24.9, sodium 140, potassium 4.6. Creatinine is 1.57. UA noted. ASSESSMENT: 1. Weakness of the right lower leg; possible acute stroke. 2. Possible acute urinary tract infection with sepsis, present on admission. 3. Acute renal failure with acute tubular necrosis. 4. Elevated serum bilirubin. 5. Increased white count. 6. Change in mental status, acute metabolic encephalopathy. 7. Gait dysfunction. 8. History of seizure disorder. 9. History of cerebrovascular accident, transient ischemic attack. 10.Hypertension. 11.Hyperlipidemia. 12.History of prostate disorder. RECOMMENDATIONS AND DISCUSSION: In this 75-year-old gentleman who presented with multiple complex medical issues, we will monitor the patient closely, continue the current medications, continue symptomatic treatment. Antiplatelet agents. I would also recommend neurology consultation. The patient might require further evaluation, including MRI and full neurovascular workup. COVID-19 has been requested. Otherwise, continue to monitor. Orthopedics also will be consulted if there is continuing pain. Otherwise PT/OT evaluation. 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 Prognosis guarded because of multiple complex medical issues. Further recommendations to follow. A copy of this dictation is being forwarded to Dr. Charles, who is the primary physician. The patient has significant weakness of the right lower leg, basically mostly distal. MMODL / IJN: [id number] /
--- NOTE | 2021-04-13 22:12 | XR ---
EXAMINATION TYPE: XR lumbar spine 2 or 3V DATE OF EXAM: 04/13/2021 COMPARISON: NONE HISTORY: Back pain TECHNIQUE: 3 views FINDINGS: Lumbar vertebra have normal alignment. Posterior elements are intact. Disc spaces are fairl y normal. Sacroiliac joints are intact. There is minor spurring of the endplates. Abdominal aorta is atheromatous. IMPRESSION: Mild degenerative spurring. No fracture.
[2021-04-14] MEDS: SODIUM CHLORIDE 0.9% 1,000 ML IV SCH ×2 (05:18→09:01)
[2021-04-14 06:43] LABS: Basophils % (A) 0 %; Eosinophils # (A) 0.1 k/uL (0-0.7); Eosinophils % (A) 0 %; HCT 37.3 % (39.0-53.0); Lymphocytes # (A) 1.2 k/uL (1.0-4.8); Lymphocytes % (A) 5 %; MCH 29.7 pg (25.0-35.0); MCHC 32.1 g/dL (31.0-37.0); MCV 92.6 fL (80.0-100.0); Mean Platelet Volume 10.3; Monocytes # (A) 0.9 k/uL (0-1.0); Monocytes % (A) 4 %; Neutrophils # (A) 20.7 k/uL (1.3-7.7); Neutrophils % (A) 90 %; Platelet Count 381 k/uL (150-450); RBC 4.03 m/uL (4.30-5.90); RDW 14.6 % (11.5-15.5); WBC 23.1 k/uL (3.8-10.6)
[2021-04-14] MEDS ORDERED: AZITHROMYCIN 500 MG TAB PO SCH (09:00)
[2021-04-14] MEDS: levETIRAcetam 500 MG TAB PO SCH ×2 (09:00→21:09)
[2021-04-14] MEDS ORDERED: ASPIRIN 325 MG TAB PO SCH (09:00)
[2021-04-14] MEDS: ANAGRELIDE 0.5 MG CAP PO SCH ×2 (09:00→21:08)
[2021-04-14] MEDS ORDERED: cefTRIAXone IN SWFI 1,000 MG/10 ML SYRINGE IVP SCH (09:00)
[2021-04-14] MEDS: allopurinoL 100 MG TAB PO SCH ×2 (09:01→21:08)
[2021-04-14] MEDS: DOXYCYCLINE 100 MG CAP PO SCH (09:01)
[2021-04-14] MEDS: lisinopriL 5 MG TAB PO SCH (09:01)
[2021-04-14] MEDS: amLODIPine 5 MG TAB PO SCH (09:01)
[2021-04-14 09:16] LABS: Calcium 8.5 mg/dL (8.4-10.2); Potassium 4.7 mmol/L (3.5-5.1)
--- NOTE | 2021-04-14 12:34 | P.CNNES ---
History of Present Illness Consult date: 04/14/21 Requesting physician: Wesly Haile Reason for Consult: Stroke/TIA History of Present Illness: Patient is a 75-year-old male came to the hospital by ambulance yesterday at around noon after he suffered from a fall. As per EMS flow sheet, when they arrived, found patient's standing in the bathroom at the terrellity, he was supporting himself with his weight on his right leg. He had mentioned that he fell getting out of the tub and he thinks he broke his left hip. Patient was alert and oriented 4. He mentioned that he was getting out of the shower and he fell. He landed on his back and buttocks and then to his shoulder. Denies head or neck pain or denies hitting his head or use of blood thinners. He had mentioned that he was having decreased mobility with his left leg due to some low back issues. Patient's vital signs on arrival blood pressure 140/90, pulse rate 90, respirations 16. CT head showed no acute intracranial hemorrhage or midline shift. There is mild to moderate diffuse age-related cerebral atrophy and moderate chronic small vessel ischemic change redemonstrated. No significant change from recent CT. X-ray of the right tibia-fibula revealed findings suspicious for remote mid fibular fracture. Chest x-ray showed early interstitial lung disease. Chronic lung disease coating fibrosis, interstitial pneumonitis or less likely mild or early venous congestion in the differential diagnosis. X-ray of the femur showed no fracture. Pelvic x-ray showed no fracture, bilateral hip arthropathy. Correlate for femoral acetabular impingement. EKG with normal sinus rhythm. Blood test shows W BC 25.9 hemoglobin 13.8, platelets aren't 10. PT/PTT normal, electrolytes are normal, BUN 34, creatinine 1.57. Hepatic panel is normal, troponin negative, UA shows large amount of leukocyte Estrace. 72 WBC. Patient provided me slightly different history. Patient states that he has been having problems with the right leg with numbness of the right leg from knee down to the foot going on for last 1-1/2 weeks. He was seen by his primary physician who recommended him to follow-up with his neurologist Dr. Ramirez, whom he saw on Saturday, 2 days prior to arrival. He was given prednisone tapering down does. Patient states it was getting better. Yesterday he was taking a shower. While he was getting out of the top, he stepped out of the tub with his good left leg and then slipped on his left leg and fell, with his right leg behind the tub. It took 10 minutes for him to crawl to the counter to pull himself up and then he called 911. Patient denies any slurred speech facial droop problem with the vision, any hoarseness, sore throat. Dr. Loomis noticed that he was very weak in the right leg, could not lift it off the bed at all. His right arm was also weak, therefore he suspected stroke. This prompted neurology consultation. Patient takes Keppra 500 mg twice a day, lisinopril 5 mg, amlodipine, allopurinol simvastatin 20 mg, not on any antiplatelets. Patient has history of seizure disorder diagnosed 8 years ago. He had 2 seizures in the lifetime, controlled on Keppra. Patient is , lives by himself. He does not use any assistive device at home. Patient smokes half pack per day for 7 years, quit 50 years ago. Does not drink alcohol. Review of Systems As above. He has hip pain, easy bruising. Denies any chest pain shortness of breath wheezing or cough. No fever or chills. No double vision, loss of vision, hoarseness, sore throat, dysphagia. Past Medical History Past Medical History: CVA/TIA, Hyperlipidemia, Hypertension, Prostate Disorder, Seizure Disorder Additional Past Medical History / Comment(s): Last Seizure 4 years ago History of Any Multi-Drug Resistant Organisms: None Reported Past Surgical History: Prostate Surgery Past Anesthesia/Blood Transfusion Reactions: No Reported Reaction Past Psychological History: No Psychological Hx Reported Smoking Status: Never smoker Past Alcohol Use History: None Reported Past Drug Use History: None Reported - Past Family History Brother(s) Additional Family Medical History / Comment(s): OCD Disorder Sister(s) Additional Family Medical History / Comment(s): MS in 1998 Father Family Medical History: Coronary Artery Disease (CAD), CVA/TIA Medications and Allergies Home Medications Medication Instructions Recorded Confirmed Type Allopurinol [Zyloprim] 100 mg PO BID 06/01/19 04/13/21 History Anagrelide [Agrylin] 1.5 mg PO BID 06/01/19 04/13/21 History Simvastatin [Zocor] 20 mg PO HS 06/01/19 04/13/21 History amLODIPine [Norvasc] 5 mg PO DAILY 09/02/19 04/13/21 History levETIRAcetam [Keppra] 500 mg PO BID 09/02/19 04/13/21 History lisinopriL [Zestril] 5 mg PO HS 09/02/19 04/13/21 History predniSONE [Deltasone] See Taper PO DAILY 04/13/21 04/13/21 History Allergies Allergy/AdvReac Type Severity Reaction Status Date / Time No Known Allergies Allergy Verified 04/13/21 12:12 Physical Examination - Vital Signs Vital Signs: Vital Signs Temp Pulse Pulse Resp BP BP Pulse Ox 04/14/21 08:03 97.7 F 62 20 150/70 96 04/14/21 04:00 98.0 F 64 18 136/69 98 04/14/21 02:00 90 18 04/13/21 23:54 97.7 F 90 18 145/69 94 L 04/13/21 20:00 89 18 04/13/21 19:39 98.1 F 89 18 146/74 97 04/13/21 19:15 97.9 F 84 17 146/74 95 04/13/21 15:42 88 18 140/85 98 04/13/21 14:34 89 18 151/79 96 04/13/21 12:09 97.9 F 101 H 18 135/68 96 Intake and Output 04/13/21 04/14/21 04/14/21 22:59 06:59 14:59 Intake Total 540 680 Output Total 450 200 Balance 90 480 Intake: Oral 540 680 Output: Urine 450 200 Other: Voiding Method Urinal Urinal Weight 75.296 kg 75.5 kg Patient is an elderly male, very pleasant, in no acute distress. Patient is alert awake oriented to time place and person. Patient knows it is 04/14/2021. Speech and language functions are normal. Attention, concentration and fund of knowledge is adequate. On cranial examination, pupils are round and reacting to light, visual doty are full on confrontation, extraocular muscles are intact with no nystagmus. Face is symmetric, tongue protrudes to the midline. Palatal elevation and sen sation normal, hearing and shoulder shrug normal, facial sensation normal. Shoulder shrug normal. On muscle strength testing, there is no pronator drift and the strength is weak in the right deltoid about 4+5-, normal on the left. Biceps and triceps are normal. Preventive Maintenance Coordinator is equal. Interossei is slightly weak on the right. 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 After using his right arm, it got weak with pulling bows. He denies any weakness of his arm. Patient's strength is normal in the lower limbs. Deep tendon reflexes are 1+ all over and plantars downgoing. Sensory to touch is equal with no neglect. Cerebellar function showed no ataxia for [id number] testing. He is slightly tremulous. No dysdiadochokinesia. Tone and bulk of muscles normal. Gait deferred. Patient walks with a walker since he slipped and fell. Otherwise he was not using any device. On general examination, there is mild right carotid bruit, no murmur, S1-S2 audible. Abdomen is soft nontender. Chest is clear. Peripheral pulses are present. No edema. Results - Laboratory Findings CBC and BMP: 04/14/21 06:25 04/14/21 06:25 Abnormal Lab Findings: Abnormal Labs 04/13/21 04/13/21 04/13/21 12:58 12:58 12:58 WBC 25.9 H RBC Hgb Hct Plt Count 510 H Neutrophils # 23.7 H Chloride 112 H Carbon Dioxide 19 L BUN 34 H Creatinine 1.57 H Glucose 178 H Total Bilirubin 1.5 H Urine Protein 2+ H Ur Leukocyte Esterase Large H Urine WBC 72 H Urine WBC Clumps Few H Ur Squamous Epith Cells 5 H Urine Bacteria Rare H Hyaline Casts 3 H Urine Mucus Rare H 04/14/21 04/14/21 06:25 06:25 WBC 23.1 H RBC 4.03 L Hgb 12.0 L Hct 37.3 L Plt Count Neutrophils # 20.7 H Chloride 115 H Carbon Dioxide 18 L BUN 35 H Creatinine 1.58 H Glucose 111 H Total Bilirubin Urine Protein Ur Leukocyte Esterase Urine WBC Urine WBC Clumps Ur Squamous Epith Cells Urine Bacteria Hyaline Casts Urine Mucus Assessment and Plan Assessment: * Status post slip and fall. * Right arm weakness, which patient attributes to bow-hunting and developing right arm weakness from it. No new weakness per patient. * Transient right leg weakness noticed by primary physician. Rule out CVA. * Hyperlipidemia * Hypertension * History of seizure disorder, controlled on Keppra. * History of prostate answer. Plan: * MRI of the brain rule out CVA. * Carotid Doppler. Patient does have right carotid bruit. * Aspirin 81 mg daily. * Lipid panel. * Dr. Izquierdo will resume neurology service in the morning.
--- NOTE | 2021-04-14 15:37 | US ---
EXAMINATION TYPE: US carotid duplex BILAT DATE OF EXAM: 04/14/2021 COMPARISON: 05/2019 CLINICAL HISTORY: Right side weakness, rule out CVA, rt bruit. EXAM MEASUREMENTS: RIGHT: Peak Systolic Velocity (PSV) cm/sec ----- Right CCA: 60.7 ----- Right ICA: 133.5 ----- Right ECA: 102.2 ICA/CCA ratio: 2.2 RIGHT: End Diastole cm/sec ----- Right CCA: 9.1 ----- Right ICA: 16.4 ----- Right ECA: 0.0 LEFT: Peak Systolic Velocity (PSV) cm/sec ----- Left CCA: 79.0 ----- Left ICA: 59.6 ----- Left ECA: 93.5 ICA/CCA ratio: 1.0 LEFT: End Diastole cm/sec ----- Left CCA: 7.9 ----- Left ICA: 11.1 ----- Left ECA: 4.7 VERTEBRALS (direction of flow): Right Vertebral: Antegrade Left Vertebral: Antegrade Rhythm: Normal Bilateral plaque in bulbs and prox ICA, Right ICA increased ratio and velocity but similar to previou s Sanchez scale, color Doppler, spectral Doppler imaging performed of the carotid arteries. Waveform durga sis shows elevated peak systolic velocity in the proximal internal carotid artery and the right, elev ated ICA to CCA ratio of 2.2. IMPRESSION: Findings are similar to prior exam. No hemodynamic significant stenosis of the proximal internal carotid artery on the left by Doppler criteria, an indirect measurement of carotid stenosis. There are atheromatous changes involving the proximal internal carotid artery on the right at the le brenda of the carotid bulb only mild velocity increase, no elevation of the end-diastolic velocity. ICA to CCA ratio is mildly increased. Criteria for Assigning % of Stenosis / Diameter reduction (Estimation based on the indirect measurements of the internal carotid artery velocities (ICA PSV). 1. Normal (no stenosis)=ICA PSV < 125 cm/s: ratio < 2.0: ICA EDV<40 cm/s. 2. Less than 50% stenosis=ICA PSV < 125 cm/s: ratio < 2.0: ICA EDV<40 cm/s. 3. 50 to 69% stenosis=ICA PSV of 125 to 230 cm/s: ration 2.0 ? 4.0: ICA EDV 40-100 cm/s. 4. Greater than 70% stenosis to near occlusion= ICA PSV > 230 cm/s: ratio > 4.0: ICA EDV > 100 cm/s. 5. Near occlusion= ICA PSV velocities may be low or undetectable: variable ratio and ICA EDV. 6. Total occlusion=unable to detect flow.
[2021-04-14 18:36] LABS: Chol/HDL Ratio 2.86 Ratio; LDL Cholesterol,Calculated 44.9 mg/dL (0.0-131.0); Triglycerides 73.4 mg/dL (0.00-149.00); VLDL Calculation 14.68 mg/dL (5.00-40.00)
--- NOTE | 2021-04-14 19:03 | PN ---
PROGRESS NOTE DATE OF SERVICE: 04/14/2021 This 75-year-old gentleman admitted with some change in mental status and significant weakness of the right lower limb is significantly improved at this time. The features are suggestive of acute stroke. A lumbosacral spine x-ray was also done which showed mild DJD and no acute findings. Neurology consultation is ongoing as well as neurovascular workup. Carotid Doppler showed similar findings as prior exam with atheromatous changes with no significant stenosis. No chest pain. No palpitations. No fever. PHYSICAL EXAMINATION: Alert and oriented x3. Pulse 79, blood pressure 158/70, respiration 20, temperature 97.9, pulse ox 94% on room air. HEENT: Conjunctivae normal. NECK: No jugular venous distention. CARDIOVASCULAR: S1, S2 muffled. RESPIRATION: Breath sounds diminished at the bases. No rhonchi. No crackles. ABDOMEN: Soft, nontender. LEGS: No edema. No swelling. NERVOUS SYSTEM: Diffusely weak. LAB STUDIES: WBC 23.1, sodium 139, potassium 4.7. CO2 is 18. Creatinine is 1.58. UA shows 72 WBCs. ASSESSMENT: 1. Weakness of the right leg; possible acute stroke caused by left hemispheric lesion. 2. Acute urinary tract infection with sepsis, present on admission. 3. Change in mental status, metabolic encephalopathy, multifactorial. 4. Acute renal failure, acute tubular necrosis. 5. Acute metabolic acidosis. 6. Elevated serum bilirubin. 7. Increased white count. 8. Change in mental status, acute metabolic encephalopathy. 9. Gait dysfunction. 10.History of seizure disorder. 11.History of cerebrovascular accident, transient ischemic attack. 12.Hypertension. 13.Hyperlipidemia. 14.History of prostate disorder. RECOMMENDATIONS AND DISCUSSION: I recommend to continue current medications, continue with the monitoring, symptomatic treatment. Otherwise at this time I recommend continuing with empiric antibiotics. Neurology evaluation and possible MRI. Continue the rest of the medications. Prognosis guarded. Continue with antiplatelet agents and Lipitor. Guarded prognosis. Further recommendations to follow. MMODL / IJN: [id number] /
[2021-04-14] MEDS: ATORVASTATIN 10 MG TAB PO SCH (21:08)
[2021-04-14] MEDS: FAMOTIDINE 20 MG TAB PO SCH (21:09)
[2021-04-15] MEDS: SODIUM CHLORIDE 0.9% 1,000 ML IV SCH ×3 (03:14→16:58)
--- NOTE | 2021-04-15 07:41 | XR ---
Skull series HISTORY: Pre-MRI 3 Views of the skull, correlation CT brain 04/13/2021 Calcified pineal gland is noted incidentally. Bone mineralization is maintained. No radiopaque foreig n body evident. IMPRESSION: No counterindication to MRI is evident within the skull.
[2021-04-15] MEDS: ANAGRELIDE 0.5 MG CAP PO SCH ×2 (09:47→22:31)
[2021-04-15] MEDS: lisinopriL 5 MG TAB PO SCH (09:47)
[2021-04-15] MEDS: levETIRAcetam 500 MG TAB PO SCH ×2 (09:47→22:30)
[2021-04-15] MEDS: amLODIPine 5 MG TAB PO SCH (09:47)
[2021-04-15] MEDS: ASPIRIN 81 MG PO SCH (09:47)
[2021-04-15] MEDS: allopurinoL 100 MG TAB PO SCH ×2 (09:47→22:30)
--- NOTE | 2021-04-15 17:25 | P.PN ---
Subjective Progress Note Date: 04/15/21 The patient is an 75-year-old male who is seen in neurologic follow-up on April 15, 2021, via telemedicine. The patient reportedly feels as if his right lower extremity strength has improved today, however it does remain weaker than the left. 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 He denies a cochlear implant. He says he has had a stapedectomy x3. He also reports that he was advised not to have an MRI of his brain because of this implant in his ear. Objective - Vital Signs Vital signs: Vital Signs Temp 98.1 F 04/15/21 11:31 Pulse 110 H 04/15/21 11:31 Resp 18 04/15/21 11:31 BP 168/83 04/15/21 11:31 Pulse Ox 96 04/15/21 11:31 Intake & Output 04/14/21 04/15/21 04/15/21 18:59 06:59 18:59 Intake Total 1350 180 Output Total 1300 400 Balance 50 -400 180 Weight 74 kg Intake: IV 10 Invasive Line 1 10 Oral 1340 180 Output: Urine 1300 400 Other: Voiding Method Toilet Toilet Urinal Urinal # Voids 1 1 1 # Bowel Movements 1 1 - Exam Gen.: Patient is reclining in the bed. He is well-nourished, well-developed and in no acute distress. HEENT: Head is atraumatic, normocephalic. Fundus not visualized. There is no scleral icterus. Neurological examination Mental status: The patient is awake, alert and oriented 3. His speech is clear. Cranial nerves: 2-12, intact as tested. Smile symmetric. Tongue protrudes midline. Motor: Left lower extremity strength 5/5. Right hip flexor 3-/5. Right hamstring 3-/5. Bilateral ankle dorsiflexors 5/5. Bilateral hip abductors 5/5. - Labs CBC & Chem 7: 04/14/21 06:25 04/14/21 06:25 Labs: Abnormal Lab Results - Last 24 Hours (Table) 04/14/21 Range/Units 06:25 HDL Cholesterol 32.00 L (40.00-60.00) mg/dL Microbiology - Last 24 Hours (Table) 04/14/21 03:30 Urine Culture - Final Urine,Clean Catch 04/13/21 15:45 Blood Culture - Preliminary Blood No Growth after 24 hours 04/13/21 16:00 Blood Culture - Preliminary Blood No Growth after 24 hours Assessment and Plan Assessment: 1. Right leg weakness-possible left lacunar infarct Plan: 1. CT scan brain to rule out CVA 2. Skull x-ray report has been reviewed. There is no obvious medical per their report, to prohibit MRI of brain. Time with Patient: Less than 30 (spent 20 minutes with patient via telemedicine)
--- NOTE | 2021-04-15 21:22 | PN ---
PROGRESS NOTE DATE OF SERVICE: 04/15/2021 This 75-year-old gentleman who was admitted with weakness of the right leg with a possible acute stroke caused by left hemispheric lesion is being closely monitored at this time. The patient was recommended to have an MRI, but the patient is not willing to have an MRI because the patient apparently had a cochlear implant. No chest pain. No palpitations. No fever. Skull x-ray did not show any acute abnormality. PHYSICAL EXAMINATION: Alert and oriented x3. Pulse 78, blood pressure 152/80, respiration 18, temperature 98.1, pulse ox 96% on room air. HEENT: Conjunctivae normal. NECK: No jugular venous distention. CARDIOVASCULAR: S1, S2 muffled. RESPIRATION: Breath sounds diminished at the bases. A few scattered rhonchi. ABDOMEN: Soft, nontender. LEGS: No edema. No swelling. NERVOUS SYSTEM: No focal deficit. LABS: WBC 23.2, hemoglobin 12. Sodium potassium 4.7. ASSESSMENT: 1. Weakness of the right leg; possible acute stroke caused by left hemispheric lesion. 2. Acute urinary tract infection with sepsis, present on admission. 3. Change in mental status, acute metabolic encephalopathy, multifactorial. 4. Acute renal failure, acute tubular necrosis. 5. Acute metabolic acidosis. 6. Elevated serum bilirubin. 7. Increased white count. 8. Change in mental status, acute metabolic encephalopathy. 9. Gait dysfunction. 10.History of seizure disorder. 11.History of cerebrovascular accident, transient ischemic attack. 12.Hypertension. 13.Hyperlipidemia. 14.History of prostate disorder. RECOMMENDATIONS AND DISCUSSION: I recommend to continue current medications, continue with symptomatic treatment. Cultures are negative so far. Otherwise, continue the rest of the medications. Prognosis guarded. Continue the antiplatelet agents. As mentioned earlier, patient refused MRI. Further recommendations to follow. MMODL / IJN: [id number] / MTDD
[2021-04-15] MEDS: FAMOTIDINE 20 MG TAB PO SCH (22:30)
[2021-04-15] MEDS: ATORVASTATIN 10 MG TAB PO SCH (22:30)
--- NOTE | 2021-04-15 23:18 | CT ---
EXAMINATION TYPE: CT brain wo con DATE OF EXAM: 04/15/2021 COMPARISON: 04/13/2021 HISTORY: CVA CT DLP: 1166.40 mGycm Automated exposure control for dose reduction was used. Images of the brain obtained without contrast. There is cerebral cortical atrophy. There is no mass effect nor midline shift. There is no sign of in tracranial hemorrhage. The calvarium is intact. Calvarium is intact. Skull base is intact. There is s ome mucosal thickening in the right side sphenoid sinus. IMPRESSION: Cerebral atrophy. No acute intracranial abnormality. No change.
[2021-04-16] MEDS: SODIUM CHLORIDE 0.9% 1,000 ML IV SCH ×2 (03:40→12:52)
[2021-04-16] MEDS: ASPIRIN 81 MG PO SCH (10:09)
[2021-04-16] MEDS: lisinopriL 5 MG TAB PO SCH (10:09)
[2021-04-16] MEDS: amLODIPine 5 MG TAB PO SCH (10:10)
[2021-04-16] MEDS: allopurinoL 100 MG TAB PO SCH ×2 (10:10→21:10)
[2021-04-16] MEDS: ANAGRELIDE 0.5 MG CAP PO SCH ×2 (10:10→21:56)
[2021-04-16] MEDS: levETIRAcetam 500 MG TAB PO SCH ×2 (10:13→21:10)
--- NOTE | 2021-04-16 19:20 | PN ---
PROGRESS NOTE DATE OF SERVICE: 04/16/2021 This 75-year-old gentleman who was admitted with weakness of the right leg was referred for MRA but the patient apparently is not willing for MRA. A brain CT was done today instead which shows ( ) atrophy. No acute abnormality. No chest pain. No palpitations. No fever. PHYSICAL EXAMINATION: Alert and oriented x3. Pulse is 74, blood pressure 160/76, respirations 16, temperature 97.6, pulse ox 93% on room air. HEENT: Conjunctivae normal. Oral mucosa moist. NECK: No jugular venous distention. No lymph node enlargement. CARDIOVASCULAR: S1, S2, muffled. No S3, no S4, RESPIRATORY: Diminished breath sounds at the bases. No rhonchi, no crackles. ABDOMEN: Soft, nontender. No mass palpable. LEGS: No edema, no swelling. NERVOUS SYSTEM: Diffusely weak. Otherwise, no significant weakness of the right limb. LABS: The creatinine is 1.58. WBC 23.1. COVID-19 is negative. ASSESSMENT: 1. Weakness of the right leg, possible acute stroke caused by left hemispheric lesion. 2. Acute urinary tract infection with sepsis present on admission. 3. Change in mental status, acute metabolic encephalopathy, multifactorial. 4. Acute renal failure with acute tubular necrosis. 5. Increased WBC. 6. Acute metabolic acidosis. 7. Elevated serum bilirubin. 8. Gait dysfunction. 9. History of seizure disorder. 10.History of CVA, TIA. 11.Hypertension. 12.Hyperlipidemia. 13.History of prostate disorder. RECOMMENDATIONS: Recommend to continue current medications, symptomatic treatment. Otherwise at this time I would recommend to closely follow with Neurology. The patient has elevated WBCs, mostly neutrophilic which is of recent onset. We will continue to monitor. Patient has UTI. Further recommendations to follow. MMODL / IJN: [id number] /
[2021-04-16 20:53] LABS: Glucose,Whole Blood 104 mg/dL (75-99)
[2021-04-16] MEDS: IOPAMIDOL CONTRAST (ORAL USE) VIAL PO PRN ×2 (21:04→21:58)
[2021-04-16] MEDS: FAMOTIDINE 20 MG TAB PO SCH (21:10)
[2021-04-16] MEDS: ATORVASTATIN 10 MG TAB PO SCH (21:10)
--- NOTE | 2021-04-16 23:01 | CT ---
EXAMINATION TYPE: CT abdomen pelvis wo con DATE OF EXAM: 04/16/2021 COMPARISON: None HISTORY: pain CT DLP: 579.5 mGycm Automated exposure control for dose reduction was used. Images obtained from the diaphragm to the floor the pelvis with oral contrast only. There is some patchy atelectasis at the lung bases. Heart is borderline enlarged. There is no pericar dial effusion. There are clips from cholecystectomy. Liver spleen pancreas appear intact. The bile du cts are nondilated. Stomach is intact. There is no adrenal mass. Kidneys have normal size. There is no hydronephrosis. There is bilateral mi ld perinephric fat stranding. Ureters are not dilated. There is no retroperitoneal adenopathy. Bladde r distends smoothly. There is no inguinal hernia. There are some sigmoid diverticula. There is no div erticulitis. There is no ascites or free air. There is no sign of a bowel obstruction. Small bowel pa ttern is normal. There is no evidence of a bowel obstruction. Appendix is not seen. There is no sign of thickened appendix. The lumbar vertebra have normal alignment. Posterior elements are intact. There is no compression fra cture. Bony pelvis is intact. The hip joints are intact. IMPRESSION: There is some patchy atelectasis at the lung bases. Bilateral perinephric fat stranding could relate to previous obstruction. No evidence of renal obstruction on today's exam. Appendix not seen. Mild sigmoid diverticulosis. Possible bilateral scrotal hydroceles.
[2021-04-17] MEDS: SODIUM CHLORIDE 0.9% 1,000 ML IV SCH ×2 (00:40→12:01)
[2021-04-17] MEDS: ANAGRELIDE 0.5 MG CAP PO SCH (08:24)
[2021-04-17] MEDS: lisinopriL 5 MG TAB PO SCH (08:24)
[2021-04-17] MEDS: allopurinoL 100 MG TAB PO SCH (08:25)
[2021-04-17] MEDS: ASPIRIN 81 MG PO SCH (08:25)
[2021-04-17] MEDS: levETIRAcetam 500 MG TAB PO SCH (08:25)
[2021-04-17] MEDS: amLODIPine 5 MG TAB PO SCH (08:25)
[2021-04-17 08:56] LABS: Basophils % (A) 0 %; Eosinophils # (A) 0.3 k/uL (0-0.7); Eosinophils % (A) 4 %; HCT 39.3 % (39.0-53.0); HGB 12.8 gm/dL (13.0-17.5); Lymphocytes # (A) 1.3 k/uL (1.0-4.8); Lymphocytes % (A) 13 %; MCH 30.1 pg (25.0-35.0); MCHC 32.6 g/dL (31.0-37.0); MCV 92.4 fL (80.0-100.0); Mean Platelet Volume 10.8; Monocytes # (A) 0.5 k/uL (0-1.0); Monocytes % (A) 5 %; Neutrophils # (A) 7.5 k/uL (1.3-7.7); Neutrophils % (A) 77 %; Platelet Count 334 k/uL (150-450); RBC 4.25 m/uL (4.30-5.90); RDW 14.6 % (11.5-15.5); WBC 9.8 k/uL (3.8-10.6)
[2021-04-17 08:57] LABS: Calcium 8.8 mg/dL (8.4-10.2)
[2021-04-17 10:36] VITALS: RESP 20
[2021-04-17 11:56] VITALS: BP 152/81; PULSE 107; TEMP 97.9
--- NOTE | 2021-04-20 09:43 | P.DS ---
Providers Date of admission: 04/13/21 15:25 Expected date of discharge: 04/17/21 Attending physician: Ruchi Poon Consults: 04/13/21 15:25 Consult Physician Routine Consulting Provider: Chun Kendrick Consult Reason/Comments: Suspect CVA Do you want consulting provider notified?: Yes Primary care physician: Xenia Charles Hospital Course: Final diagnosis Weakness of the right leg, possible acute stroke caused by left hemispheric lesion Acute urinary tract infection with sepsis, present on admission Change in mental status acute metabolic encephalopathy, multifactorial Acute renal failure with acute tubular necrosis Increased WBC Acute metabolic acidosis Elevated serum bilirubin Gait dysfunction History of seizure disorder History of CVA, TIA Hypertension Hyperlipidemia History of prostate disorder Discharge disposition Patient is being discharged in a stable condition with guarded prognosis to home. Patient will follow-up with Dr. Charles upon discharge. Patient also follow-up with Dr. Hull in the outpatient setting. Patient will continue with a short course of oral antibiotics in the form of Augmentin twice daily for the next 1 week along with Bactrim twice daily for 1 week as well. Total time taken is greater than 35 minutes. Hospital course This is a 75-year-old male who was recently admitted with weakness of the right leg was referred for MRA but the patient apparently is not willing to do this. A brain CT was done instead showing no acute abnormalities. Patient strongly encourage and instructed to follow up with neurology in the outpatient setting along with primary care provider Dr. Charles upon discharge. Recommended repeat labs in 2 days to monitor CBC and BMP. Urine culture finalized as no growth and will not require antibiotics on discharge. Patient is adamant about going home today and refusing rehab. Possible home care services being arranged. Currently no reports of chest pain, shortness of breath, or dictations. Patient is afebrile. No reports of nausea or vomiting noted and patient is tolerating diet. Patient will be discharged home today. Guarded prognosis. On exam vital signs are stable. Cardio S1, S2 are muffled. Respiratory shows diminished breath sounds at the bases with no wheezing or rhonchi noted. Abdomen is soft and nontender. Nervous system shows no focal deficits. Please refer to medication reconciliation sheet for a list of medications. Patient Condition at Discharge: Stable Plan - Discharge Summary New Discharge Prescriptions: New Aspirin 81 mg PO DAILY 30 Days #30 tab Continue Simvastatin [Zocor] 20 mg PO HS Anagrelide [Agrylin] 1.5 mg PO BID Allopurinol [Zyloprim] 100 mg PO BID levETIRAcetam [Keppra] 500 mg PO BID amLODIPine [Norvasc] 5 mg PO DAILY lisinopriL [Zestril] 5 mg PO HS Discontinued predniSONE [Deltasone] See Taper PO DAILY Discharge Medication List Allopurinol [Zyloprim] 100 mg PO BID 06/01/19 [History] Anagrelide [Agrylin] 1.5 mg PO BID 06/01/19 [History] Simvastatin [Zocor] 20 mg PO HS 06/01/19 [History] amLODIPine [Norvasc] 5 mg PO DAILY 09/02/19 [History] levETIRAcetam [Keppra] 500 mg PO BID 09/02/19 [History] lisinopriL [Zestril] 5 mg PO HS 09/02/19 [History] Aspirin 81 mg PO DAILY 30 Days #30 tab 04/17/21 [Rx] Follow up Appointment(s)/Referral(s): Tara Figueroa MD [Medical Doctor] - 1 Week (PLEASE CALL OFFICE WHEN OPEN TO MAKE FOLLOW UP APPOINTMENT) Xenia Charles MD [Primary Care Provider] - 04/18/21 11:40 am Ambulatory/Diagnostic Orders: Complete Blood Count w/diff [LAB.AMB] Time Frame: 2 Days, Location: None Selected Patient Instructions/Handouts: Ischemic Stroke (DC) Activity/Diet/Wound Care/Special Instructions: Activity Limited until follow-up Follow-up primary care provider on discharge Continue medications as prescribed follow up with neurology outpatient Continue current diet continue heart healthy diet Discharge Disposition: HOME WITH HOME HEALTH SERVICES
== END 2021-04-17 14:28 | disposition home health service (06) | DRG 64 ==
LOC: EC 11:59 → 3SCARD 15:25
PROVIDERS: ADMIT Internal Medicine; ATTEND Internal Medicine
DX: I63.81 Other cerebral infarction due to occlusion or stenosis of small artery (principal); J18.9 Pneumonia, unspecified organism; N17.0 Acute kidney failure with tubular necrosis; G93.41 Metabolic encephalopathy; A41.9 Sepsis, unspecified organism; E87.2 Acidosis; N39.0 Urinary tract infection, site not specified; G81.91 Hemiplegia, unspecified affecting right dominant side; G31.89 Other specified degenerative diseases of nervous system; E86.0 Dehydration; S82.409A Unspecified fracture of shaft of unspecified fibula, initial encounter for closed fracture; Z20.822 Contact with and (suspected) exposure to COVID-19; E78.5 Hyperlipidemia, unspecified; R26.9 Unspecified abnormalities of gait and mobility; M19.90 Unspecified osteoarthritis, unspecified site; G40.909 Epilepsy, unspecified, not intractable, without status epilepticus; I10 Essential (primary) hypertension; M12.852 Other specific arthropathies, not elsewhere classified, left hip; M12.851 Other specific arthropathies, not elsewhere classified, right hip; M25.852 Other specified joint disorders, left hip; W01.0XXA Fall on same level from slipping, tripping and stumbling without subsequent striking against object, initial encounter; Z79.82 Long term (current) use of aspirin; Z79.899 Other long term (current) drug therapy; Z85.46 Personal history of malignant neoplasm of prostate; Z86.73 Personal history of transient ischemic attack (TIA), and cerebral infarction without residual deficits; Z87.891 Personal history of nicotine dependence; Z90.79 Acquired absence of other genital organ(s)
CPT/HCPCS: 36415; 70250; 70450; 71046; 72100; 73502; 74176; 80048; 80053; 80061; 81001; 84484; 85025; 85610; 85730; 87040; 87086; 87635; 93005; 93880; 99285

== ENCOUNTER → 2023-02-12 | Outpatient (CLI) | payer MEDICARE ==
[2023-02-12 20:49] LABS: T4, Free (Free Thyroxine) 1.33 ng/dL (0.80-1.80)
== END | disposition home or self-care (01) ==
LOC: LABWHC1 14:58
PROVIDERS: ATTEND Psychiatry & Neurology Neurology
DX: R53.83 Other fatigue (principal); R25.2 Cramp and spasm; R26.89 Other abnormalities of gait and mobility
CPT/HCPCS: 36415; 82306; 82533; 82550; 82607; 84207; 84403; 84439; 84443

== ENCOUNTER → 2023-11-13 | Outpatient (CLI) | payer MEDICARE ==
--- NOTE | 2023-11-13 12:46 | US ---
EXAMINATION TYPE: US kidneys/renal and bladder DATE OF EXAM: 11/13/2023 COMPARISON: CT abdomen and pelvis 04/16/2021, renal ultrasound 12/16/2017. CLINICAL INDICATION: Male, 78 years old with history of N18.31 CHRONIC KIDNEY DISEASE, STAGE 3A; EXAM MEASUREMENTS: Right Kidney: 11.2 x 6.8 x 5.2 cm Left Kidney: 11.6 x 5.5 x 5.3 cm Post Void Residual Volume: 408 mL Right Kidney: Cyst-like structure measuring 1.5 x 1.5 x 1.4 cm Left Kidney: No hydronephrosis or masses seen Bladder: Anechoic - post void residual Bilateral Jets seen: Right jet only Normal Post Void Residual: No There is no evidence for hydronephrosis at this point in time. No nephrolithiasis is seen. Exophytic right renal 1.5 cm cyst corresponding to previously seen hyperechoic exophytic cyst on CT likely rep resenting a proteinaceous/hemorrhagic cyst. Previously seen calcified left renal hypoechoic lesion is not definitely visualized on today's exam. Corticomedullary differentiation is maintained bilaterall y. The urinary bladder is anechoic. Right ureteral jet demonstrated. 480 mL postvoid residual. IMPRESSION: 1. No hydronephrosis or nephrolithiasis. 2. Right renal 1.5 cm exophytic cyst which is previously demonstrated on prior CT likely representing a proteinaceous/hemorrhagic cyst. 3. Abnormal postvoid residual of 480 mL. Correlate for urinary bladder attention.
== END | disposition home or self-care (01) ==
LOC: RADUSWWP 10:08
PROVIDERS: ATTEND Internal Medicine
DX: N18.31 Chronic kidney disease, stage 3a (principal); N28.1 Cyst of kidney, acquired
CPT/HCPCS: 76770

== ENCOUNTER → 2023-11-27 | Outpatient (CLI) | payer MEDICARE | END | disposition home or self-care (01) | LOC: LABWHC1 14:13 | PROVIDERS: ATTEND Radiology Radiation Oncology | DX: C61 Malignant neoplasm of prostate (principal); Z90.79 Acquired absence of other genital organ(s) | CPT/HCPCS: 36415; 84153 ==

== ENCOUNTER → 2024-01-02 | Outpatient (CLI) | payer MEDICARE ==
[2024-01-02 18:17] LABS: HGB 15.8 g/dL (13.0-17.0); MCH 26.2 pg (27.0-32.0); MCHC 30.4 g/dL (32.0-37.0); MCV 86.4 FL (80.0-97.0); NRBC Per 100 WBC 0 X 10*3/uL (0.00-0.01); Platelet Count 327 X 10*3/uL (140-440); RBC 6.02 X 10*6/uL (4.40-5.60); RDW 19.6 % (11.5-14.5); WBC 16.76 X 10*3/uL (4.50-10.00)
[2024-01-02 19:29] LABS: ALT 17 U/L (10-49); AST 21 U/L (14-35); Albumin 4.4 g/dL (3.8-4.9); Albumin/Globulin Ratio 1.83 Ratio (1.60-3.17); Alkaline Phosphatase 103 U/L (41-126); BUN/Creat Ratio 24.53 Ratio (12.00-20.00); Blood Urea Nitrogen 46.6 mg/dL (9.0-27.0); Calcium 9.7 mg/dL (8.7-10.3); Carbon Dioxide 19.8 mmol/L (21.6-31.8); Chloride 110 mmol/L (96-109); Globulin 2.4 g/dL (1.6-3.3); Glucose 93 mg/dL (70-110); Magnesium 2.3 mg/dL (1.5-2.4); Phosphorus 4.8 mg/dL (2.4-5.1); Potassium 5.6 mmol/L (3.5-5.5); Sodium 141 mmol/L (135-145); Total Protein 6.8 g/dL (6.2-8.2)
[2024-01-02 20:47] LABS: Appearance,Urine Clear (Clear); Bilirubin,Urine Negative (Negative); Blood,Urine Negative (Negative); Color,Urine Yellow (Yellow); Ketones,Urine Negative (Negative); Nitrite,Urine Negative (Negative); Specific Gravity,Urine 1.015 (1.001-1.030); Urobilinogen,Urine 0.2 E.U./DL
[2024-01-02 21:04] LABS: Bacteria,Urine None Seen (None Seen)
[2024-01-02 21:52] LABS: Total Volume 24 Hour,Urine 1850 mL
[2024-01-03 01:48] LABS: Total Protein 24 Hour,Urine 1163.6 mg/24Hr (0.0-165.0)
== END | disposition home or self-care (01) ==
LOC: LABWHC1 13:05
PROVIDERS: ATTEND Internal Medicine
DX: N18.31 Chronic kidney disease, stage 3a (principal)
CPT/HCPCS: 36415; 80053; 81001; 81050; 83735; 84100; 84156; 85027

== ENCOUNTER → 2024-01-02 | Outpatient (CLI) | payer MEDICARE ==
--- NOTE | 2024-01-05 08:05 | PE ---
EXAMINATION TYPE: PET CT fusion skull to thigh DATE OF EXAM: 01/02/2024 CLINICAL INDICATION:Male, 78 years old with history of C61 Z90.79 illuccix; TECHNIQUE: Following the intravenous administration of 6.95 mCi of Ga-68 Illuccix (PSMA), whole bod y images are performed from the skull base to the midthigh. Images are reviewed on the computer in t he coronal, axial, and sagittal planes. Reconstructed rotating images are created on independent wor kstation and reviewed on the computer. A non-contrast CT is performed in conjunction with the PET s can. CT DLP: 405.6 mGycm, Automated exposure control for dose reduction was used. COMPARISON: CT 04/16/2021, PET/CT None, MRI: None FINDINGS: Mediastinal SUV mean is 2.51. Hepatic parenchyma SUV mean is 8.6. SKULL BASE AND NECK: No suspicious radiotracer activity. CHEST, MEDIASTINUM, AND HILAR REGION: No suspicious radiotracer activity. ABDOMEN AND PELVIS: * No suspicious radiotracer activity. * The prostate gland is surgically absent. * No lymphadenopathy or radiotracer avid up lymph nodes identified. * No surgical bed uptake definitively visualized there is intense uptake from the urinary bladder ev aluation. MUSCULOSKELETAL STRUCTURES: No suspicious radiotracer activity.. OTHER CT: Hyperdense right renal cyst measuring 40 to 1 cm. The gallbladder surgically absent. Coloni c diverticulosis. Mild cardiomegaly. Coronary artery atherosclerosis. Hydrocele bilaterally right gre ater than left. IMPRESSION: Post surgical changes to the prostate gland, no abnormal uptake at this time.
== END | disposition home or self-care (01) ==
LOC: RADPETMAIN 13:44
PROVIDERS: ATTEND Radiology Radiation Oncology
DX: C61 Malignant neoplasm of prostate (principal); Z90.79 Acquired absence of other genital organ(s)
CPT/HCPCS: 78815; A9596

== ENCOUNTER 2024-04-19 13:11 | Emergency (ER) | payer MEDICARE ==
[2024-04-19 13:18] VITALS: RESP 18
--- NOTE | 2024-04-19 13:52 | ED ---
General Adult HPI - General Chief complaint: Neuro Symptoms/Deficit Stated complaint: possible stroke 10.12 Time Seen by Provider: 04/19/24 13:20 Source: patient, RN notes reviewed, old records reviewed Mode of arrival: ambulatory Limitations: no limitations - History of Present Illness Initial comments: 78-year-old male presenting for evaluation of double vision, dizziness and unsteady gait. Patient states his symptoms began yesterday evening, around 4 PM. Patient was working on frosting his freezer. He did not want to come to the emergency department because he needed to complete this task. He states that the double vision has resolved he has some mild persistent dizziness. Patient denies focal numbness or weakness. - Related Data Home Medications Medication Instructions Recorded Confirmed Simvastatin [Zocor] 20 mg PO HS 06/01/19 04/19/24 allopurinoL [Zyloprim] 100 mg PO DAILY 06/01/19 04/19/24 amLODIPine [Norvasc] 10 mg PO DAILY 09/02/19 04/19/24 lisinopriL [Zestril] 5 mg PO DAILY 09/02/19 04/19/24 Aspirin EC [Ecotrin Low Dose] 81 mg PO DAILY 04/19/24 04/19/24 Ergocalciferol [Vitamin D2 (1250 1,250 mcg PO GARCIA 04/19/24 04/19/24 Mcg = 36765 Iu)] Hydroxyurea [Hydrea] 1,000 mg PO SUFRSA 04/19/24 04/19/24 Hydroxyurea [Hydrea] 500 mg PO MOTUWETHFR 04/19/24 04/19/24 levETIRAcetam [Keppra] 250 mg PO BID 04/19/24 04/19/24 Allergies Allergy/AdvReac Type Severity Reaction Status Date / Time No Known Allergies Allergy Verified 04/19/24 15:39 Review of Systems ROS Statement: Those systems with pertinent positive or pertinent negative responses have been documented in the HPI. ROS Other: All systems not noted in ROS Statement are negative. Past Medical History Past Medical History: CVA/TIA, Hyperlipidemia, Hypertension, Prostate Disorder, Seizure Disorder Additional Past Medical History / Comment(s): Last Seizure 4 years ago History of Any Multi-Drug Resistant Organisms: None Reported Past Surgical History: Prostate Surgery Past Anesthesia/Blood Transfusion Reactions: No Reported Reaction Past Psychological History: No Psychological Hx Reported Smoking Status: Never smoker Past Alcohol Use History: None Reported Past Drug Use History: None Reported - Past Family History Brother(s) Additional Family Medical History / Comment(s): OCD Disorder Sister(s) Additional Family Medical History / Comment(s): MS in 1998 Father Family Medical History: Coronary Artery Disease (CAD), CVA/TIA General Exam Limitations: no limitations General appearance: alert, in no apparent distress Head exam: Present: atraumatic, normocephalic Eye exam: Present: normal appearance, PERRL ENT exam: Present: normal exam Neck exam: Present: normal inspection Respiratory exam: Present: normal lung sounds bilaterally. Absent: respiratory distress, wheezes Cardiovascular Exam: Present: regular rate, normal rhythm GI/Abdominal exam: Present: soft. Absent: distended, tenderness, guarding Extremities exam: Present: normal inspection, normal capillary refill Neurological exam: Present: alert, oriented X3, CN II-XII intact, other (5 out of 5 strength throughout, NIH of 0). Absent: motor sensory deficit Psychiatric exam: Present: normal affect, normal mood Skin exam: Present: warm, dry, intact Course Vital Signs 04/19/24 04/19/24 04/19/24 13:14 13:41 14:35 Temperature 97.4 F L Pulse Rate 70 65 60 Respiratory 18 18 18 Rate Blood Pressure 175/80 156/87 166/74 O2 Sat by Pulse 97 97 95 Oximetry Medical Decision Making - Medical Decision Making Was pt. sent in by a medical professional or institution (, PA, GROUND WORKER, urgent care, hospital, or assisted...) When possible be specific @ -No Did you speak to anyone other than the patient for history (EMS, parent, family, police, friend...)? What history was obtained from this source @ -No Did you review nursing and triage notes (agree or disagree)? Why? @ -I reviewed and agree with nursing and triage notes Were old charts reviewed (outside hosp., previous admission, EMS record, old EKG, old radiological studies, urgent care reports/EKG's, assisted records)? Report findings @ -No old charts were reviewed Differential CVA Ischemic stroke, hemorrhagic stroke, brain tumor, atypical migraine, Wernicke's encephalopathy, seizure, multiple sclerosis, meningitis, encephalitis, hypoglycemia, Guillain-Siddiqui, electrolytes disturbance, myasthenia gravis.... This is not meant to be an all-inclusive list EKG interpreted by me (3pts min.). @ -EKG: Sinus rhythm rate of 67, TN interval 173, QRS duration 81, QTc [address] segment changes. X-rays interpreted by me (1pt min.). @ -None done CT interpreted by me (1pt min.). @ -CT brain without contrast negative for intracranial hemorrhage or mass effect, CT angiography shows 47% narrowing in the right carotid no other acute findings. U/S interpreted by me (1pt. min.). @ -None done What testing was considered but not performed or refused? (CT, X-rays, U/S, labs)? Why? @ -None What meds were considered but not given or refused? Why? @ -None Did you discuss the management of the patient with other professionals (professionals i.e. , PA, GROUND WORKER, lab, RT, psych nurse, social welfare administrator, archives director, teacher, donor relations officer, telephonic nurse case manager)? Give summary @ -No Was smoking cessation discussed for >3mins.? @ -No Was critical care preformed (if so, how long)? @ -No Were there social determinants of health that impacted care today? How? (Homele ssness, low income, unemployed, alcoholism, drug addiction, transportation, low edu. Level, literacy, decrease access to med. care, skilled nursing, rehab)? @ -No Was there de-escalation of care discussed even if they declined (Discuss DNR or withdrawal of care, Hospice)? DNR status @ -No What co-morbidities impacted this encounter? (DM, HTN, Smoking, COPD, CAD, Cancer, CVA, ARF, Chemo, Hep., AIDS, mental health diagnosis, sleep apnea, morbid obesity)? @ -Hypertension Was patient admitted / discharged? Hospital course, mention meds given and route, prescriptions, significant lab abnormalities, going to OR and other pertinent info. @ -[78-year-old male with an episode of double blurred vision and dizziness which occurred yesterday and has since resolved. Patient has an NIH of 0. He has no ataxia in the upper or lower extremities. Strength is 5 out of 5. No sensory deficit. He did receive CT CT angiography. He has some disease within the right carotid artery otherwise normal imaging. Laboratory testing is baseline. We did discuss possibility of TIA and the discussion of workup for further evaluation but patient states that he has metallic implant and is unable to receive MRI imaging. He has follow-up with neurology and prefers discharge at this time. He is instructed to take aspirin awaiting follow-up with neurology. Both he and his are instructed to return to the emergency department if any of his symptoms should return. Undiagnosed new problem with uncertain prognosis? @ -No Drug Therapy requiring intensive monitoring for toxicity (Heparin, Nitro, Insulin, Cardizem)? @ -No Were any procedures done? @ -No Diagnosis/symptom? @ -TIA Acute, or Chronic, or Acute on Chronic? @ acute Uncomplicated (without systemic symptoms) or Complicated (systemic symptoms)? @ -Default Side effects of treatment? @ -No Exacerbation, Progression, or Severe Exacerbation? @ -No Poses a threat to life or bodily function? How? (Chest pain, [place], [place], pneumonia, PE, COPD, DKA, ARF, appy, cholecystitis, CVA, Diverticulitis, Homicidal, Suicidal, threat to staff... and all critical care pts) @ -Moderate risk, CVA - Lab Data Result diagrams: 04/19/24 13:40 04/19/24 13:40 Lab Results 04/19/24 04/19/24 04/19/24 Range/Units 13:40 13:40 13:40 WBC 7.2 (3.8-10.6) k/uL RBC 5.35 (4.30-5.90) m/uL Hgb 15.8 (13.0-17.5) gm/dL Hct 48.5 (39.0-53.0) % MCV 90.7 (80.0-100.0) fL MCH 29.6 (25.0-35.0) pg MCHC 32.6 (31.0-37.0) g/dL RDW 23.6 H (11.5-15.5) % Plt Count 388 (150-450) k/uL MPV 8.4 Neutrophils % 81 % Lymphocytes % 9 % Monocytes % 7 % Eosinophils % 1 % Basophils % 0 % Neutrophils # 5.9 (1.3-7.7) k/uL Lymphocytes # 0.7 L (1.0-4.8) k/uL Monocytes # 0.5 (0-1.0) k/uL Eosinophils # 0.1 (0-0.7) k/uL Basophils # 0.0 (0-0.2) k/uL Anisocytosis Moderate Macrocytosis Slight PT 12.0 (10.0-12.5) sec INR 1.1 (<1.2) APTT 29.0 (22.0-30.0) sec Sodium 139 (137-145) mmol/L Potassium 4.3 (3.5-5.1) mmol/L Chloride 113 H (98-107) mmol/L Carbon Dioxide 19 L (22-30) mmol/L Anion Gap 7 mmol/L BUN 35 H (9-20) mg/dL Creatinine 1.47 H (0.66-1.25) mg/dL Est GFR (CKD-EPI)AfAm 52 (>60 ml/min/1.73 sqM) Est GFR (CKD-EPI)NonAf 45 (>60 ml/min/1.73 sqM) Glucose 84 (74-99) mg/dL Calcium 9.2 (8.4-10.2) mg/dL Total Bilirubin 2.1 H (0.2-1.3) mg/dL AST 32 (17-59) U/L ALT 22 (4-49) U/L Alkaline Phosphatase 81 (38-126) U/L Creatine Kinase 65 (55-170) U/L Total Protein 6.7 (6.3-8.2) g/dL Albumin 4.1 (3.5-5.0) g/dL Disposition Clinical Impression: Transient cerebral ischemia Disposition: HOME SELF-CARE Condition: Fair Instructions (If sedation given, give patient instructions): Transient Ischemic Attack (ED) Is patient prescribed a controlled substance at d/c from ED?: No Referrals: Xenia Charles MD [Primary Care Provider] - 1-2 days Vazquez Ramirez DO [STAFF PHYSICIAN] - 1-2 days Time of Disposition: 15:58
[2024-04-19 13:56] LABS: INR 1.1 (<1.2)
[2024-04-19 13:59] LABS: ALT 22 U/L (4-49); AST 32 U/L (17-59); African American GFR (CKD) 52 (>60 ml/min/1.73 sqM); Albumin 4.1 g/dL (3.5-5.0); Alkaline Phosphatase 81 U/L (38-126); Anion Gap 7 mmol/L; Blood Urea Nitrogen 35 mg/dL (9-20); Calcium 9.2 mg/dL (8.4-10.2); Carbon Dioxide 19 mmol/L (22-30); Chloride 113 mmol/L (98-107); Creatine Kinase 65 U/L (55-170); Glucose 84 mg/dL (74-99); Non-African American GFR(CKD) 45 (>60 ml/min/1.73 sqM); Potassium 4.3 mmol/L (3.5-5.1); Sodium 139 mmol/L (137-145); Total Bilirubin 2.1 mg/dL (0.2-1.3); Total Protein 6.7 g/dL (6.3-8.2)
[2024-04-19 14:00] LABS: Anisocytosis Moderate; Basophils % (A) 0 %; Eosinophils # (A) 0.1 k/uL (0-0.7); Eosinophils % (A) 1 %; HCT 48.5 % (39.0-53.0); HGB 15.8 gm/dL (13.0-17.5); Lymphocytes # (A) 0.7 k/uL (1.0-4.8); Lymphocytes % (A) 9 %; MCH 29.6 pg (25.0-35.0); MCHC 32.6 g/dL (31.0-37.0); MCV 90.7 fL (80.0-100.0); Macrocytosis Slight; Mean Platelet Volume 8.4; Monocytes # (A) 0.5 k/uL (0-1.0); Monocytes % (A) 7 %; Neutrophils # (A) 5.9 k/uL (1.3-7.7); Neutrophils % (A) 81 %; Platelet Count 388 k/uL (150-450); RBC 5.35 m/uL (4.30-5.90); RDW 23.6 % (11.5-15.5); WBC 7.2 k/uL (3.8-10.6)
[2024-04-19] MEDS: SODIUM CHLORIDE 0.9% 1,000 ML IV ONE (14:35)
--- NOTE | 2024-04-19 15:25 | CT ---
EXAMINATION TYPE: CT brain wo con DATE OF EXAM: 04/19/2024 COMPARISON: 04/25/2021 INDICATION: Dizziness and double vision yesterday. Resolved now. DLP: Combined DLP of 1604.5 mGycm, Automated exposure control for dose reduction was used. CONTRAST: None CT of the brain is performed utilizing 3 mm thick sections through the posterior fossa and 3 mm thick sections through the remaining calvarium. Study is performed within 24 hours of arrival to the hosp ital. No abnormal hyperdensity is present to suggest an acute intracranial hemorrhage. No mass lesion is evident. No acute infarcts are evident. Periventricular white matter hypodensities present, likely on the basi s of chronic white matter ischemic changes. Ventricles and sulci are appropriate for the patient age. Retention cysts are within the right maxillary sinus and right sphenoid sinus remaining paranasal sin uses and mastoid air cells are clear IMPRESSION: 1. No acute intracranial process. Follow up MRI can be performed as clinically indicated. 2. Chronic appearing periventricular white matter ischemic-type changes, present previously. [facility], Workstation: [facility], 04/19/2024 3:23 PM
--- NOTE | 2024-04-19 15:37 | CT ---
EXAMINATION TYPE: CT angio head neck DATE OF EXAM: 04/19/2024 HISTORY: Dizziness and double vision yesterday. Resolved now. COMPARISON: CT brain 04/19/2024 CT DLP: Combined DLP of 1604.5 mGycm. Automated Exposure Control for Dose Reduction was Utilized. TECHNIQUE: CTA scan of the neck is performed with IV Contrast, patient injected with 65 cc mL of Iso morgan 370, axial images are obtained, coronal and sagittal reformatted images are reviewed. Three-D rec onstructed images are not present due to technical malfunction. Source images are reviewed. FINDINGS: Carotid/Vascular Structures: There is a 3 vessel arch. The azygos vein appears to be retrotracheal Common carotid arteries bifurcate into internal and external carotid arteries without significant [place] w limiting stenosis. There is a 47% narrowing of the proximal right internal carotid artery. No signi ficant narrowing of the left internal carotid artery is evident. Vertebral arteries are codominant. Internal carotid arteries and vertebral arteries are patent to the skull base. Cervical of [place]: Vertebral basilar system appears normal. Posterior cerebral vasculature is unrema rkable. Internal carotid arteries bifurcate normally into A1 and M1 segments. A2 segments are normal. The anterior communicating artery is patent. The right posterior communicating artery is patent. The left posterior communicating artery is absent. IMPRESSION: 1. No flow-limiting stenosis bilateral carotid bifurcations. There is some plaquing present internal carotid arteries slightly greater on the right compared to the left. 2. Normal [place] of [place] NASCET criteria was used in interpretation of this exam? [facility], Workstation: [facility], 04/19/2024 3:34 PM
[2024-04-19] MEDS: ASPIRIN 325 MG TAB PO STA (16:03)
[2024-04-19 16:11] VITALS: BP 158/79; PULSE 77; TEMP 98
== END 2024-04-19 16:20 | disposition home or self-care (01) ==
LOC: EC 13:11
CPT/HCPCS: 36415; 70450; 70496; 70498; 80053; 82550; 85025; 85610; 85730; 93005; 96360; 96361; 99284

== ENCOUNTER 2024-05-03 00:48 | Emergency (ER) | payer MEDICARE ==
[2024-05-03 00:56] VITALS: TEMP 98.3
--- NOTE | 2024-05-03 01:49 | ED ---
General Adult HPI - General Chief complaint: Urogenital Stated complaint: Urogenital (Trouble Urinating) Time Seen by Provider: 05/03/24 00:58 Source: patient Mode of arrival: ambulatory Limitations: no limitations - History of Present Illness Initial comments: Patient is a pleasant 78-year-old gentleman with past medical history of prostate cancer status post prostatectomy, presenting today for acute urinary retention. Patient states over the last 3 days decreased urine output. Last urinated at 8 PM last night. Endorses lower abdominal pain and fullness. Additionally in dilute versus bilateral flank pain though no midline back pain. Denies incontinence of stool. States that he does have constipation, did have a hard bowel movement this morning and last bowel movement prior to that was 2 days ago. No black or bloody stools. He denies fevers, nausea vomiting or diarrhea. He denies any incontinence of stool or saddle anesthesia. He is currently in remission from his prostate cancer. Endorses dysuria denies hematuria. No recent trauma. - Related Data Home Medications Medication Instructions Recorded Confirmed Simvastatin [Zocor] 20 mg PO HS 06/01/19 04/19/24 allopurinoL [Zyloprim] 100 mg PO DAILY 06/01/19 04/19/24 amLODIPine [Norvasc] 10 mg PO DAILY 09/02/19 04/19/24 lisinopriL [Zestril] 5 mg PO DAILY 09/02/19 04/19/24 Aspirin EC [Ecotrin Low Dose] 81 mg PO DAILY 04/19/24 04/19/24 Ergocalciferol [Vitamin D2 (1250 1,250 mcg PO GARCIA 04/19/24 04/19/24 Mcg = 62071 Iu)] Hydroxyurea [Hydrea] 1,000 mg PO SUFRSA 04/19/24 04/19/24 Hydroxyurea [Hydrea] 500 mg PO MOTUWETHFR 04/19/24 04/19/24 levETIRAcetam [Keppra] 250 mg PO BID 04/19/24 04/19/24 Previous Rx's Medication Instructions Recorded Cephalexin [Keflex] 500 mg PO Q6HR 10 Days #40 cap 05/03/24 Cephalexin [Keflex] 500 mg PO QID #40 cap 05/03/24 Allergies Allergy/AdvReac Type Severity Reaction Status Date / Time No Known Allergies Allergy Verified 05/03/24 00:56 Review of Systems ROS Statement: Those systems with pertinent positive or pertinent negative responses have been documented in the HPI. ROS Other: All systems not noted in ROS Statement are negative. Constitutional: Denies: fever, chills Cardiovascular: Denies: chest pain Gastrointestinal: Reports: abdominal pain, constipation. Denies: nausea, vomiting, diarrhea, melena, hematochezia Genitourinary: Reports: urgency, dysuria. Denies: hematuria Musculoskeletal: Denies: back pain Neurological: Denies: weakness, numbness Past Medical History Past Medical History: CVA/TIA, Hyperlipidemia, Hypertension, Prostate Disorder, Seizure Disorder Additional Past Medical History / Comment(s): Last Seizure 4 years ago History of Any Multi-Drug Resistant Organisms: None Reported Past Surgical History: Prostate Surgery Past Anesthesia/Blood Transfusion Reactions: No Reported Reaction Past Psychological History: No Psychological Hx Reported Smoking Status: Never smoker Past Alcohol Use History: None Reported Past Drug Use History: None Reported - Past Family History Brother(s) Additional Family Medical History / Comment(s): OCD Disorder Sister(s) Additional Family Medical History / Comment(s): MS in 1998 Father Family Medical History: Coronary Artery Disease (CAD), CVA/TIA General Exam - General Exam Comments Initial Comments: PE: CONSTITUTIONAL: No apparent distress, well appearing SKIN: Warm, dry, no jaundice, hives or petechiae, no overlying skin changes with examination of the back and EYES: Pupils are equally round, extraocular movements intact without nystagmus, clear conjunctiva, non-icteric sclera HENT: Normocephalic, atraumatic, moist mucus membranes, oropharynx clear without exudates NECK: , Full range of motion, normal appearance PULMONARY: Clear to auscultation without wheezes, rhonchi, or rales, normal excursion, no accessory muscle use and no stridor CARDIOVASCULAR: Regular rate, rhythm, normal S1 and S2. No appreciated murmurs, rubs or gallops. Strong radial pulses with intact distal perfusion. No lower extremity edema GASTROINTESTINAL: Soft, active bowel sounds throughout, non-tender mildly distended in region of urinary bladder, guarding with palpation of the suprapubic region,, no palpable masses, no rebound, palpation of the suprapubic region no hepatosplenomegaly, no flank pain or CVA tenderness MUSCULOSKELETAL: Extremities have no gross deformity, no edema, redness, or swelling. No midline spinal tenderness to palpation NEUROLOGIC:_a/o x 3, GCS 15, normal mentation and speech. Moves all extremities x 4 without motor or sensory deficit PSYCHIATRIC:_normal mood and affect, thought process is clear and linear Limitations: no limitations Course Vital Signs 05/03/24 05/03/24 00:50 04:00 Temperature 98.3 F Pulse Rate 95 82 Respiratory 20 18 Rate Blood Pressure 191/83 176/82 O2 Sat by Pulse 95 98 Oximetry Medical Decision Making - Medical Decision Making Was pt. sent in by a medical professional or institution (, PA, DIALYSIS REGISTERED NURSE, urgent care, hospital, or snf...) When possible be specific @ -No Did you speak to anyone other than the patient for history (EMS, parent, family, police, friend...)? What history was obtained from this source @ -No Did you review nursing and triage notes (agree or disagree)? Why? @ -I reviewed and agree with nursing and triage notes Were old charts reviewed (outside hosp., previous admission, EMS record, old EKG, old radiological studies, urgent care reports/EKG's, snf records)? Report findings @ -Medical records reviewed- Patient had a PET scan performed in December 2023 Norit no abnormal uptake noted on 04/19/2024 for dizziness, CT brain at that time no acute intracranial process Differential Diagnosis (chest pain, altered mental status, abdominal pain women, abdominal pain men, vaginal bleeding, weakness, fever, dyspnea, syncope, headache, dizziness, GI bleed, back pain, seizure, CVA, palpatations, mental health, musculoskeletal)? @Differential diagnosis remains broad over top considerations include urinary retention secondary to obstructive process, ORQUIDEA, ureterolithiasis, medication side effect, return of malignancy this is not all inclusive list EKG interpreted by me (3pts min.). @ -As above X-rays interpreted by me (1pt min.). @ -None done CT interpreted by me (1pt min.). @ -No obstruction or free air indicating perforation, no hydronephrosis or hydroureter U/S interpreted by me (1pt. min.). @ -None done What testing was considered but not performed or refused? (CT, X-rays, U/S, labs)? Why? @ -None What meds were considered but not given or refused? Why? @ -None Did you discuss the management of the patient with other professionals (professionals i.e. , PA, DIALYSIS REGISTERED NURSE, lab, RT, psych nurse, nephrology social worker, accounting specialist, teacher, commanding officer garage, casework supervisor)? Give summary @ -No Was smoking cessation discussed for >3mins.? @ -No Was critical care preformed (if so, how long)? @ -No Were there social determinants of health that impacted care today? How? (Ho melessness, low income, unemployed, alcoholism, drug addiction, transportation, low edu. Level, literacy, decrease access to med. care, [facility] [facility], rehab)? @ -No Was there de-escalation of care discussed even if they declined (Discuss DNR or withdrawal of care, Hospice)? @ -No What co-morbidities impacted this encounter? (DM, HTN, Smoking, COPD, CAD, Cancer, CVA, ARF, Chemo, Hep., AIDS, mental health diagnosis, sleep apnea, morbid obesity)? @ -None Was patient admitted / discharged? Hospital course, mention meds given and route, prescriptions, significant lab abnormalities, going to OR and other pe rtinent info. @ Discharged- Patient is a pleasant 78 y/o gentleman presenting today for urinary retention. Bladder scan arrival showed 300 cc in patient's bladder. On my assessment patient is comfortable and well-appearing. Mildly distended lower abdomen with guarding on palpation of the suprapubic region. No point tenderness. Patient had no flank pain or midline spinal tenderness on my exam. Denies red flag symptoms such as urinary or stool incontinence or saddle anesthesia. Due to wesley gandhi's history of prostate cancer we will plan for CT abdomen pelvis without contrast to ensure no anatomical obstructive pathology. Additionally we will check CBC and CMP to assess kidney function as well as urinalysis. Patient agreeable plan of care. Additionally discussed with him placing Valente catheter, he is agreeable with this. Bladder scan showed greater than 300 ml urine. Valente catheter placed and UA sent to lab. CT showed right renal cyst, also noted on PET scan performed in December. No acute process. Urinalysis significant for 2+ protein, trace ketones, moderate blood, positive nitrates, large leukocyte esterase, 12 red blood cells, greater than 182 white cells, moderate white blood cell clumps, occasional bacteria and rare mucus. On my reassessment patient endorses improvement of symptoms. Valente catheter in place. Updated patient and significant other to findings. Will give patient dose of cefepime here prior to discharge. Discussed with patient plan for IV antibiotics and discharged home with Keflex. Patient is agreeable plan of care. Will follow-up with urology regarding today's visit. In my medical judgment there is currently no evidence of an immediate life- threatening or surgical condition. Discharge is therefore indicated at this time. Discharge treatment instructions, follow up instructions, and appropriate emergency department return precautions were discussed with the patient and/or medical decision maker. Patient and/or medical decision maker expressed understanding of and agreed with the treatment plan, follow up instructions, and emergency department return precaution. All patient's and/or medical decision maker's questions were answered. Undiagnosed new problem with uncertain prognosis? @ -No Drug Therapy requiring intensive monitoring for toxicity (Heparin, Nitro, Insulin, Cardizem)? @ -No Were any procedures done? @ -No Diagnosis/symptom? @Acute urinary retention, UTI Acute, or Chronic, or Acute on Chronic? @Acute Uncomplicated (without systemic symptoms) or Complicated (systemic symptoms)? @ -Uncomplicated Side effects of treatment? @ -No Exacerbation, Progression, or Severe Exacerbation? @ -No Poses a threat to life or bodily function? How? (Chest pain, [place], [place], pneumonia, PE, COPD, DKA, ARF, appy, cholecystitis, CVA, Diverticulitis, Homicidal, Suicidal, threat to staff... and all critical care pts) @ -No - Lab Data Result diagrams: 05/03/24 01:59 05/03/24 01:59 Lab Results 05/03/24 05/03/24 05/03/24 Range/Units 01:41 01:59 01:59 WBC 13.8 H (3.8-10.6) k/uL RBC 5.28 (4.30-5.90) m/uL Hgb 16.3 (13.0-17.5) gm/dL Hct 50.2 (39.0-53.0) % MCV 95.0 (80.0-100.0) fL MCH 30.9 (25.0-35.0) pg MCHC 32.5 (31.0-37.0) g/dL RDW 24.3 H (11.5-15.5) % Plt Count 467 H (150-450) k/uL MPV 7.4 Neutrophils % 91 % Lymphocytes % 3 % Monocytes % 5 % Eosinophils % 1 % Basophils % 0 % Neutrophils # 12.5 H (1.3-7.7) k/uL Lymphocytes # 0.3 L (1.0-4.8) k/uL Monocytes # 0.7 (0-1.0) k/uL Eosinophils # 0.2 (0-0.7) k/uL Basophils # 0.0 (0-0.2) k/uL Anisocytosis Marked Macrocytosis Moderate Sodium 141 (137-145) mmol/L Potassium 4.3 (3.5-5.1) mmol/L Chloride 116 H (98-107) mmol/L Carbon Dioxide 19 L (22-30) mmol/L Anion Gap 6 mmol/L BUN 39 H (9-20) mg/dL Creatinine 1.68 H (0.66-1.25) mg/dL Est GFR (CKD-EPI)AfAm 45 (>60 ml/min/1.73 sqM) Est GFR (CKD-EPI)NonAf 38 (>60 ml/min/1.73 sqM) Glucose 128 H (74-99) mg/dL Calcium 8.9 (8.4-10.2) mg/dL Total Bilirubin 2.1 H (0.2-1.3) mg/dL AST 25 (17-59) U/L ALT 18 (4-49) U/L Alkaline Phosphatase 88 (38-126) U/L Total Protein 6.8 (6.3-8.2) g/dL Albumin 4.0 (3.5-5.0) g/dL Urine Color Yellow Urine Appearance Cloudy (Clear) Urine pH 6.5 (5.0-8.0) Ur Specific [place] 1.013 (1.001-1.035) Urine Protein 2+ H (Negative) Urine Glucose (UA) Negative (Negative) Urine Ketones Trace H (Negative) Urine Blood Moderate H (Negative) Urine Nitrite Positive (Negative) Urine Bilirubin Negative (Negative) Urine Urobilinogen <2.0 (<2.0) mg/dL Ur Leukocyte Esterase Large H (Negative) Urine RBC 12 H (0-5) /hpf Urine WBC >182 H (0-5) /hpf Urine WBC Clumps Moderate H (None) /hpf Ur Squamous Epith Cells 1 (0-4) /hpf Urine Bacteria Occasional H (None) /hpf Urine Mucus Rare H (None) /hpf Disposition Clinical Impression: Urinary retention, Urinary tract infection Disposition: HOME SELF-CARE Condition: Good Instructions (If sedation given, give patient instructions): Urinary Tract Infection in Men (ED), Avlente Catheter Placement and Care (ED), How to Change a Catheter Drainage Bag (DC) Additional Instructions: Every disease is a spectrum and a small chance still exists that a serious condition could develop, for this reason, please monitor yourself closely for new, changing or worsening symptoms, symptoms that persist beyond 48 hours, no urine output into your Valente bag for more than 6 to 8 hours, new abdominal pain or flank pain, confusion, fever, inability to tolerate/keep down fluids or your medications, inability to follow up with outpatient providers as instructed and should you experience these symptoms or should you have any further concerns for your wellbeing please return to the ED or call 911 immediately. Please follow-up with urologist, Dr. Sanches this Saturday regarding valente catheter and UTI. PLEASE call your primary care physician as soon as possible to arrange / discuss plan for followup appointment. Appointment in the next 1-3 days is strongly encouraged if possible. PLEASE let us know here before you leave if there is anything further we can do to be of any assistance. Take care and feel Better! Prescriptions: Cephalexin [Keflex] 500 mg PO QID #40 cap Cephalexin [Keflex] 500 mg PO Q6HR 10 Days #40 cap Is patient prescribed a controlled substance at d/c from ED?: No Referrals: Xenia Charles MD [Primary Care Provider] - 1-2 days Zaki Sanches MD [STAFF PHYSICIAN] - 1-2 days
[2024-05-03 01:51] LABS: Appearance,Urine Cloudy (Clear); Bacteria,Urine Occasional /hpf; Bilirubin,Urine Negative (Negative); Blood,Urine Moderate (Negative); Color,Urine Yellow; Glucose,Urine (UA) Negative (Negative); Ketones,Urine Trace (Negative); Leukocyte Esterase,Urine Large (Negative); Mucus,Urine Rare /hpf; Nitrite,Urine Positive (Negative); PH, Urine 6.5 (5.0-8.0); Protein,Urine 2+ (Negative); RBC,Urine 12 /hpf (0-5); Specific Gravity,Urine 1.013 (1.001-1.035); Squamous Epithelial Cell,Urine 1 /hpf (0-4); Urobilinogen,Urine <2.0 mg/dL (<2.0); WBC,Urine >182 /hpf (0-5)
[2024-05-03] MEDS: SODIUM CHLORIDE 0.9% 1,000 ML IV ONE (01:58)
[2024-05-03 02:13] LABS: Anisocytosis Marked; Basophils % (A) 0 %; Eosinophils # (A) 0.2 k/uL (0-0.7); Eosinophils % (A) 1 %; HCT 50.2 % (39.0-53.0); HGB 16.3 gm/dL (13.0-17.5); Lymphocytes # (A) 0.3 k/uL (1.0-4.8); Lymphocytes % (A) 3 %; MCH 30.9 pg (25.0-35.0); MCHC 32.5 g/dL (31.0-37.0); Macrocytosis Moderate; Mean Platelet Volume 7.4; Monocytes # (A) 0.7 k/uL (0-1.0); Monocytes % (A) 5 %; Neutrophils # (A) 12.5 k/uL (1.3-7.7); Neutrophils % (A) 91 %; Platelet Count 467 k/uL (150-450); RBC 5.28 m/uL (4.30-5.90); RDW 24.3 % (11.5-15.5); WBC 13.8 k/uL (3.8-10.6)
[2024-05-03 02:21] LABS: ALT 18 U/L (4-49); AST 25 U/L (17-59); African American GFR (CKD) 45 (>60 ml/min/1.73 sqM); Alkaline Phosphatase 88 U/L (38-126); Anion Gap 6 mmol/L; Blood Urea Nitrogen 39 mg/dL (9-20); Calcium 8.9 mg/dL (8.4-10.2); Carbon Dioxide 19 mmol/L (22-30); Chloride 116 mmol/L (98-107); Glucose 128 mg/dL (74-99); Non-African American GFR(CKD) 38 (>60 ml/min/1.73 sqM); Potassium 4.3 mmol/L (3.5-5.1); Sodium 141 mmol/L (137-145); Total Bilirubin 2.1 mg/dL (0.2-1.3); Total Protein 6.8 g/dL (6.3-8.2)
--- NOTE | 2024-05-03 02:37 | CT ---
EXAM: CT Abdomen and Pelvis Without Intravenous Contrast CLINICAL HISTORY: ITS.REASON CT Reason: acute urinary retention, hx prostate CA TECHNIQUE: Axial computed tomography images of the abdomen and pelvis without intravenous contrast. CTDI is 7 mGy and DLP is 455 mGy-cm. This CT exam was performed using one or more of the following dose reduction techniques: automated exposure control, adjustment of the mA and/or kV according to patient size, and/or use of iterative reconstruction technique. COMPARISON: No relevant prior studies available. FINDINGS: Lung bases: Unremarkable. No mass. No consolidation. ABDOMEN: Liver: Unremarkable. Gallbladder and bile ducts: Cholecystectomy. No ductal dilation. Pancreas: Unremarkable. No ductal dilation. Spleen: Unremarkable. No splenomegaly. Adrenals: Unremarkable. No mass. Kidneys and ureters: Hyperdense RIGHT renal cyst measures 1.4 cm and may contain hemorrhagic or proteinaceous component. No hydronephrosis, nephrolithiasis, or obstructive uropathy. Stomach and bowel: Diverticulosis, without acute diverticulitis. No small bowel obstruction. No free intraperitoneal air. PELVIS: Appendix: No findings to suggest acute appendicitis. Bladder: Flores catheter terminates in the urinary bladder. No stones. 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 Prostatectomy. ABDOMEN and PELVIS: Intraperitoneal space: Unremarkable. No free air. No significant fluid collection. Bones/joints: Degenerative changes of the spine. No acute fracture. No dislocation. Soft tissues: Unremarkable. Vasculature: Atherosclerotic changes of the aorta. No abdominal aortic aneurysm. Lymph nodes: Unremarkable. No enlarged lymph nodes. IMPRESSION: 1. Hyperdense RIGHT renal cyst measures 1.4 cm and may contain hemorrhagic or proteinaceous component. 2. No hydronephrosis, nephrolithiasis, or obstructive uropathy. 3. 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 4. Cholecystectomy. 5. Diverticulosis, without acute diverticulitis. No small bowel obstruction. No free intraperitoneal air. 6. Prostatectomy.
[2024-05-03] MEDS: CEFEPIME 2 GM in SODIUM CHLORIDE 0.9% 100 ML IVPB STA (03:18)
[2024-05-03 04:33] VITALS: BP 176/82; PULSE 82; RESP 18
== END 2024-05-03 04:10 | disposition home or self-care (01) ==
LOC: EC 00:48
DX: N39.0 Urinary tract infection, site not specified (principal)
CPT/HCPCS: 51798; 36415; 80053; 85025; 81001; 87086; 87077; 87186; 74176; 99284; 96365; 96361; 51702; J0692